=== PATIENT | female | born 1940 | race Caucasian/White ===

== ENCOUNTER → 2016-10-30 | Outpatient (CLI) | payer BC | LOC: BMCIMAGING 09:44 | PROVIDERS: ATTEND Internal Medicine Hematology & Oncology | DX: M81.0 Age-related osteoporosis without current pathological fracture (principal) ==

== ENCOUNTER → 2016-10-31 | Outpatient (CLI) | payer BC | LOC: FIMAGING 13:33 | PROVIDERS: ATTEND Internal Medicine Hematology & Oncology | DX: C90.00 Multiple myeloma not having achieved remission (principal); R93.8 Abnormal findings on diagnostic imaging of other specified body structures; R91.8 Other nonspecific abnormal finding of lung field; Z85.3 Personal history of malignant neoplasm of breast ==

== ENCOUNTER → 2016-11-21 | Outpatient (CLI) | payer BC | LOC: FIMAGING 10:03 | DX: Z12.31 Encounter for screening mammogram for malignant neoplasm of breast (principal); Z85.3 Personal history of malignant neoplasm of breast; Z80.3 Family history of malignant neoplasm of breast | CPT/HCPCS: G0202 ==

== ENCOUNTER → 2016-12-10 | Outpatient (CLI) | payer BC | LOC: FIMAGING 11:49 | PROVIDERS: ATTEND Internal Medicine Hematology & Oncology | DX: R91.1 Solitary pulmonary nodule (principal); J47.9 Bronchiectasis, uncomplicated; I25.83 Coronary atherosclerosis due to lipid rich plaque; I77.819 Aortic ectasia, unspecified site ==

== ENCOUNTER → 2017-06-04 | Outpatient (CLI) | payer BC | LOC: FIMAGING 10:17 | PROVIDERS: ATTEND Internal Medicine Critical Care Medicine | DX: J47.9 Bronchiectasis, uncomplicated (principal); J98.4 Other disorders of lung ==

== ENCOUNTER → 2017-11-24 | Outpatient (CLI) | payer BC | LOC: FIMAGING 09:33 | PROVIDERS: ATTEND Internal Medicine Hematology & Oncology | DX: Z12.31 Encounter for screening mammogram for malignant neoplasm of breast (principal); Z85.3 Personal history of malignant neoplasm of breast ==

== ENCOUNTER → 2017-12-24 | Outpatient (CLI) | payer BC | LOC: BMCIMAGING 09:53 | PROVIDERS: ATTEND Internal Medicine Hematology & Oncology | DX: Z13.820 Encounter for screening for osteoporosis (principal); M81.0 Age-related osteoporosis without current pathological fracture; C90.00 Multiple myeloma not having achieved remission; Z78.0 Asymptomatic menopausal state ==

== ENCOUNTER → 2017-12-25 | Outpatient (CLI) | payer BC | LOC: FIMAGING 12:03 | PROVIDERS: ATTEND Internal Medicine Hematology & Oncology | DX: C90.00 Multiple myeloma not having achieved remission (principal) ==

== ENCOUNTER → 2018-01-30 | Outpatient (CLI) | payer BC | LOC: BMCIMAGING 13:21 | DX: I65.21 Occlusion and stenosis of right carotid artery (principal) ==

== ENCOUNTER → 2018-03-17 | Outpatient (CLI) | payer BC | LOC: BMCIMAGING 10:21 | PROVIDERS: ATTEND Orthopaedic Surgery | DX: M19.011 Primary osteoarthritis, right shoulder (principal) ==

== ENCOUNTER → 2018-03-20 | Outpatient (CLI) | payer BC | LOC: FIMAGING 19:26 | PROVIDERS: ATTEND Orthopaedic Surgery | DX: Z01.818 Encounter for other preprocedural examination (principal); M19.011 Primary osteoarthritis, right shoulder ==

== ENCOUNTER 2018-04-23 14:41 | Emergency (ER) | payer BC ==
--- NOTE | 2018-04-23 15:10 | EDPHY ---
H & P Stated Complaint: Mecahnical fall, landed on R hip. Unable to bare weight Time Seen by Provider: 04/23/18 15:09 HPI/ROS: CHIEF COMPLAINT: Right hip pain HISTORY OF PRESENT ILLNESS: The patient presents to the ED with complaints of right hip and groin pain after she tripped and fell at home landing on her right hip. The patient does have a prior history of a right hip prostheses. The patient did not strike her head or lose consciousness. She has no complaints of headache, neck pain, chest pain, back pain, difficulty breathing or additional extremity complaints. She denies any antecedent chest pain or palpitations prior to her fall. She currently has no acute neurologic complaints. The patient is not anticoagulated. REVIEW OF SYSTEMS: A comprehensive 10 point review of systems is otherwise negative aside from elements mentioned in the history of present illness. Source: Patient Exam Limitations: No limitations - Personal History Current Tetanus/Diphtheria Vaccine: Yes Current Tetanus Diphtheria and Acellular Pertussis (TDAP): Yes Tetanus Vaccine Date: < 10 YEARS - Medical/Surgical History Hx Asthma: No Hx Chronic Respiratory Disease: No Hx Diabetes: No Hx Cardiac Disease: No Hx Renal Disease: No Hx Cirrhosis: No Hx Alcoholism: No Hx HIV/AIDS: No Hx Splenectomy or Spleen Trauma: No Other PMH: MYELOMA,HTN, HYPERCHOLESTEROL, BREAST CANCER, ASFCENDING AORTIC ANEURYSM, heart valve regurgitation - Social History Smoking Status: Never smoked - Physical Exam Exam: General Appearance: Alert, no distress Head: Normocephalic atraumatic Neck: No midline tenderness Eyes: Pupils equal and round no pallor or injection ENT, Mouth: Mucous membranes moist Respiratory: There are no retractions, lungs are clear to auscultation Cardiovascular: Regular rate and rhythm Gastrointestinal: Abdomen is soft and nontender, no masses, bowel sounds normal Neurological: A&O, normal motor function, normal sensory exam, normal cranial nerves Skin: Warm and dry, no rashes Musculoskeletal: Neck is supple nontender Extremities: I am able to range the right hip. Patient does have pain in her right groin with passive and active range of motion Psychiatric: Patient is oriented X 3, there is no agitation Constitutional: Initial Vital Signs Temperature (C) 36.6 C 04/23/18 14:55 Heart Rate 70 04/23/18 14:55 Respiratory Rate 16 04/23/18 14:55 Blood Pressure 157/79 H 04/23/18 14:55 O2 Sat (%) 96 04/23/18 14:55 O2 Delivery Mode Room Air Allergies/Adverse Reactions: PAIN MEDS Allergy (Uncoded 03/03/11 10:56) Vomiting Home Medications: Medication Instructions Recorded Aspirin [Aspirin 81mg (*)] 81 mg PO BID 11/27/14 Atorvastatin Calcium [Lipitor 10 10 mg PO DAILY 11/27/14 mg (*)] Losartan Potassium [Cozaar 50 mg 50 mg PO DAILY 11/27/14 (*)] Metoprolol Succinate Xr [Toprol Xl 100 mg PO DAILY 11/27/14 100 mg (*)] Acetaminophen with Codeine 1 each PO Q4 PRN #20 tab 04/23/18 [Tylenol #3] Medical Decision Making - Diagnostics Imaging Results: Imaging Impressions Hip X-Ray 04/23/18 15:09 Impression: Prior right hip arthroplasty, stable in radiographic appearance, without acute fracture identified. Decreased bone density surrounding the acetabular component of the prosthesis is again noted similar to previous study. Addendum: The patient does have inferior and superior right ramus fractures. These are nondisplaced. ED Course/Re-evaluation: The patient presents the ED with complaints of isolated right hip and groin pain after mechanical fall. Patient did have a plain film x-ray which demonstrates no evidence of a dislocation or periprosthetic fracture. I wonder if the patient does have a nondisplaced inferior ramus fracture. The patient was noted to be neurovascularly intact. Ambulation with a walker was attempted in the emergency department. I did review the x-ray with the radiologist after his read. There is evidence of a inferior and superior right ramus fracture. The patient is able to ambulate with a walker. She is requesting Tylenol 3 which has been ineffective pain medication for her in the past. She has been instructed not to take more than 4 g of Tylenol a day. Differential Diagnosis: Differential diagnosis considered includes hip fracture, pelvic fracture, hip dislocation, ramus fracture Departure - Departure Disposition: Home, Routine, Self-Care Clinical Impression: Pubic ramus fracture Qualifiers: Encounter type: initial encounter Fracture type: closed Laterality: right Qualified Code(s): S32.591A - Other specified fracture of right pubis, initial encounter for closed fracture Condition: Good Instructions: Pelvic Fracture (ED) Additional Instructions: 1. Use walker for ambulation. 2. Tylenol No. 3 as needed for pain. Do not take more than 4 g of Tylenol a day. 3. Please follow up with the orthopedic surgeon you have been referred to for a follow-up visit in the next 1-2 weeks. 4. Return to the ED for uncontrolled pain or other concerns. Referrals: Harley Mast MD [Medical Doctor] - As per Instructions Prescriptions: Acetaminophen with Codeine [Tylenol #3] 1 each PO Q4 PRN #20 tab PRN Reason: for pain
[2018-04-23 16:31] VITALS: BP 144/89
--- NOTE | 2018-04-23 16:38 | ASMTCMCOM ---
CM Note CM Note Notes: Requested to assist patient with obtaining a walker. Pt provided [employer] list but because it is late in the day and she wouldn't be able to make it to the [facility] to borrow one for tonight, this CM was able to locate one from the CM supply. Pt and her state they plan on following up with Dr Zarco and pt's PCP Dr Edwige Cook. CM available for further assistance if needed. Date Signed: 04/23/2018 04:33 PM Electronically Signed By:Jess Nina RN
== END 2018-04-23 16:30 | disposition home or self-care (01) ==
DX: S32.591A Other specified fracture of right pubis, initial encounter for closed fracture (principal); S32.511A Fracture of superior rim of right pubis, initial encounter for closed fracture; W01.0XXA Fall on same level from slipping, tripping and stumbling without subsequent striking against object, initial encounter; Y92.019 Unspecified place in single-family (private) house as the place of occurrence of the external cause; I10 Essential (primary) hypertension; E78.00 Pure hypercholesterolemia, unspecified

== ENCOUNTER 2018-04-24 11:27 | Inpatient (IN) | payer OTHER, BC ==
--- NOTE | 2018-04-24 12:17 | EDPHY ---
H & P Stated Complaint: Returns for uncontrolled R hip pain, syncopal episodes, vomit , R ramus fx - Personal History Tetanus Vaccine Date: < 10 YEARS - Medical/Surgical History Hx Asthma: No Hx Chronic Respiratory Disease: No Hx Diabetes: No Hx Cardiac Disease: No Hx Renal Disease: No Hx Cirrhosis: No Hx Alcoholism: No Hx HIV/AIDS: No Hx Splenectomy or Spleen Trauma: No Other PMH: MYELOMA,HTN, HYPERCHOLESTEROL, BREAST CANCER, ASFCENDING AORTIC ANEURYSM, heart valve regurgitation, R ramus fx 04/23 - Social History Smoking Status: Never smoked Time Seen by Provider: 04/24/18 11:47 HPI/ROS: CHIEF COMPLAINT: Continued right hip pain HISTORY OF PRESENT ILLNESS: 77-year-old female arrives via private vehicle. She was seen the ER yesterday after mechanical fall onto her right hip with negative x-rays at that time. She is discharged home with Tylenol No. 3 noting that anything stronger causes intractable nausea and vomiting. She returns to the ER noting intractable pain, inability to ambulate. The family also relates multiple, recurrent episodes of syncope which are new as well as 2 episodes of coffee-ground appearing emesis this morning. No abdominal pain. No head injury. No melena hematochezia. No hematuria. No chest pain. No dyspnea. No back pain. No neck pain. REVIEW OF SYSTEMS: 10 systems reviewed and negative with the exception of the elements mentioned in the history of present illness PAST MEDICAL & SURGICAL HISTORY: Multiple myeloma. Hypertension. Hypercholesterolemia. Breast cancer. Ascending aortic aneurysm. SOCIAL HISTORY: nonsmoker PHYSICAL EXAM (Prior to examination, patient consented to physical exam, hands were washed and my usual and customary physical exam procedures followed) 1) GENERAL: Well-developed, well-nourished, alert and oriented. Appears to be in no acute distress. 2) HEAD: Normocephalic, atraumatic. No hematoma no depression no abrasion 3) HEENT: Pupils equal, round, reactive to light bilaterally. Sclera anicteric. Nasopharynx, oropharynx, clear, no lesions. Moist Mucous membranes. 4) NECK: Full range of motion, no meningeal signs. 5) LUNGS: Clear auscultation bilaterally, no wheezes, no rhonchi, no retractions. 6) HEART: Regular rate and rhythm, no murmur, no heave, no gallop. 7) ABDOMEN: No guarding, no rebound, no focal tenderness, negative McBurney's, negative Fong's, negative Rovsing's, negative peritoneal sign, 8) MUSCULOSKELETAL: There is no leg length discrepancy. She has brisk pulses bilaterally with soft compartments. She has significant pain with range of motion of the right lower extremity on the hip. Otherwise, Moving all extremities, no focal areas of tenderness, no obvious trauma. No peripheral edema or discoloration. 9) BACK: No CVA tenderness, no midline vertebral tenderness, no fluctuance, no step-off, no obvious trauma, no visual or palpable abnormality. 10) SKIN: No rash, no petechiae. 11) Psychiatric: Patient is oriented X 3, there is no agitation. DIFFERENTIAL DIAGNOSIS: In no particular order including but not limited to fracture, sprain, strain, dislocation, arrhythmia, AR (Vamsi,Aron Lorraine) Constitutional: Initial Vital Signs Temperature (C) 37.0 C 04/24/18 11:29 Heart Rate 76 04/24/18 11:29 Respiratory Rate 16 04/24/18 11:29 Blood Pressure 147/82 H 04/24/18 11:29 O2 Sat (%) 97 04/24/18 11:29 O2 Delivery Mode Room Air Allergies/Adverse Reactions: midazolam [From Versed] Allergy (Severe, Verified 04/24/18 12:49) Vomiting PAIN MEDS Allergy (Severe, Uncoded 04/24/18 12:49) Vomiting Home Medications: Medication Instructions Recorded Aspirin [Aspirin 81mg (*)] 81 mg PO BID 11/27/14 Atorvastatin Calcium [Lipitor 10 10 mg PO DAILY 11/27/14 mg (*)] Losartan Potassium [Cozaar 50 mg 50 mg PO DAILY 11/27/14 (*)] Acetaminophen/Codeine 300/30Mg 1 each PO Q4 PRN 04/24/18 [Tylenol #3 (*)] Areds 2 2 tab PO DAILY 04/24/18 Carboxymethyl/Glycerin/Poly80 1 drop OP Q2 PRN 04/24/18 [Refresh Optive Advanced Drops] Cholecalciferol Vit D3 [Vitamin D3 1,000 units PO DAILY 04/24/18 (*)] Diclofenac Sodium 1% [Voltaren Gel 1 rosales TP DAILY 04/24/18 (*)] Herbals/Supplements -Info Only 1 ea PO DAILY 04/24/18 Metoprolol Tartrate [Lopressor 25 25 mg PO BID 04/24/18 mg (*)] Medical Decision Making - Diagnostics Imaging Results: Imaging Impressions Chest X-Ray 04/24/18 12:14 Impression: 1. Suspect moderate left pneumothorax. 2. Possible mass versus parenchymal scarring right mid lung lateral to the hilum. Recommend CT examination of the chest for further characterization. 3. Advanced bilateral glenohumeral osteoarthritis.. Results called to Giuseppe Agustin PA-C, at 12:[address] 04/24/18 12:18 Impression: 1. Minimally displaced inferior pubic ramus fracture on the right. 2. Prior right hip arthroplasty without complication. Results called to Giuseppe Agustin PA-C, at 2:[address] 04/24/18 12:50 Impression: 1. Multifocal areas of pleural/parenchymal scarring within both lungs, without suspicious lung nodule identified. 2. No pneumothorax. 3. Mild dilatation of the ascending thoracic aorta at 4.4 cm. 4. Extensive aortic and coronary atherosclerotic vascular calcifications. Results called to Giuseppe Agustin PA-C, at 2:30 PM. Imaging Impressions Chest X-Ray 04/24/18 12:14 Impression: 1. Suspect moderate left pneumothorax. 2. Possible mass versus parenchymal scarring right mid lung lateral to the hilum. Recommend CT examination of the chest for further characterization. 3. Advanced bilateral glenohumeral osteoarthritis.. Results called to Giuseppe Agustin PA-C, at 12:[address] 04/24/18 12:18 Impression: 1. Minimally displaced inferior pubic ramus fracture on the right. 2. Prior right hip arthroplasty without complication. Results called to Giuseppe Agustin PA-C, at 2:[address] 04/24/18 12:50 Impression: 1. Multifocal areas of pleural/parenchymal scarring within both lungs, without suspicious lung nodule identified. 2. No pneumothorax. 3. Mild dilatation of the ascending thoracic aorta at 4.4 cm. 4. Extensive aortic and coronary atherosclerotic vascular calcifications. Results called to Giuseppe Agustin PA-C, at 2:30 PM. Images reviewed by myself (Aron Agustin) ED Course/Re-evaluation: The patient was evaluated and managed by the physician's interior design assistant. My cosignature indicates that I reviewed the chart and I agree with the findings and plan of care as documented. I am the secondary supervising physician. ( Jacqueline Gr) Old medical records reviewed by myself of after evaluating the patient. Concerned this patient is her inability to control pain at home, inability to ambulate, transfer safely at home. Shortly after evaluating the patient we discussed admission which the patient family think is appropriate given her current pain control. Family also notes multiple, recurrent episodes of syncope since leaving the [facility]. The patient denies head injury and there is no evidence of head injury. Will obtain further diagnostic studies and re- evaluate. 12:50 p.m.: Phone call from staff radiologist Dr. Baugh concerned about possible left-sided pneumothorax. Will obtain further diagnostic studies. 12:56 p.m.: Discussed the imaging findings , I recommended CT of the chest. Patient expresses concern given history of multiple myeloma and requested I speak with her oncologist Dr. Gill before consenting to CT of the chest. 1:20 p.m.: I consulted with Dr. Jeannie King, on-call for Dr. Gill discuss IV contrast. She prefers if imaging studies can be performed without IV contrast. Agrees that the benefits of CT imaging outweigh the risks for possible pneumothorax. 1:23 p.m.: Discussed my conversation with Dr. Jeannie King, recommended CT, patient consents. 2:41 p.m.: Consultation with Dr. Catalina Perales hospitalist to admit patient for recurrent syncope, intractable hip and pelvic pain, inability care for self (Aron Agustin) - Data Points Laboratory Results: Laboratory Results 04/24/18 12:10 04/24/18 12:10 04/24/18 04/24/18 04/24/18 13:29 13:27 12:10 WBC RBC Hgb Hct MCV MCH MCHC RDW Plt Count MPV Neut % (Auto) Lymph % (Auto) [place] % (Auto) Eos % (Auto) Baso % (Auto) Nucleat RBC Rel Count Absolute Neuts (auto) Absolute Lymphs (auto) Absolute Monos (auto) Absolute Eos (auto) Absolute Basos (auto) Absolute Nucleated RBC Immature Gran % Immature Gran # PT INR APTT Sodium 129 mEq/L L mEq/L (135-145) Potassium 4.2 mEq/L mEq/L (3.3-5.0) Chloride 96 mEq/L L mEq/L (97-110) Carbon Dioxide 24 mEq/l mEq/l (22-31) Anion Gap 9 mEq/L mEq/L (8-16) BUN 26 mg/dL H mg/dL (7-23) Creatinine 0.9 mg/dL mg/dL (0.6-1.0) Estimated GFR > 60 Glucose 119 mg/dL H mg/dL (70-100) Calcium 9.3 mg/dL mg/dL (8.5-10.4) POC Troponin I 0.02 ng/mL ng/mL (0.00-0.08) Stool Occult Bld Scrn NEGATIVE (NEGATIVE) 04/24/18 04/24/18 12:10 12:10 WBC 6.86 10^3/uL 10^3/uL (3.80-9.50) RBC 2.89 10^6/uL L 10^6/uL (4.18-5.33) Hgb 9.8 g/dL L g/dL (12.6-16.3) Hct 28.5 % L % (38.0-47.0) MCV 98.6 fL fL (81.5-99.8) MCH 33.9 pg pg (27.9-34.1) MCHC 34.4 g/dL g/dL (32.4-36.7) RDW 12.7 % % (11.5-15.2) Plt Count 172 10^3/uL 10^3/uL (150-400) MPV 8.4 fL L fL (8.7-11.7) Neut % (Auto) 69.4 % % (39.3-74.2) Lymph % (Auto) 13.7 % L % (15.0-45.0) [place] % (Auto) 16.5 % H % (4.5-13.0) Eos % (Auto) 0.0 % L % (0.6-7.6) Baso % (Auto) 0.1 % L % (0.3-1.7) Nucleat RBC Rel Count 0.0 % % (0.0-0.2) Absolute Neuts (auto) 4.76 10^3/uL 10^3/uL (1.70-6.50) Absolute Lymphs (auto) 0.94 10^3/uL L 10^3/uL (1.00-3.00) Absolute Monos (auto) 1.13 10^3/uL H 10^3/uL (0.30-0.80) Absolute Eos (auto) 0.00 10^3/uL L 10^3/uL (0.03-0.40) Absolute Basos (auto) 0.01 10^3/uL L 10^3/uL (0.02-0.10) Absolute Nucleated RBC 0.00 10^3/uL 10^3/uL (0-0.01) Immature Gran % 0.3 % % (0.0-1.1) Immature Gran # 0.02 10^3/uL 10^3/uL (0.00-0.10) PT 14.2 SEC SEC (12.0-15.0) INR 1.08 (0.83-1.16) APTT 27.0 SEC SEC (23.0-38.0) Sodium Potassium Chloride Carbon Dioxide Anion Gap BUN Creatinine Estimated GFR Glucose Calcium POC Troponin I Stool Occult Bld Scrn Point of Care Test Results: Chemistry 04/24/18 13:27 POC Troponin I 0.02 ng/mL ng/mL (0.00-0.08) Departure - Departure Disposition: [facility] In[facility] Acute Clinical Impression: Intractable pain Syncope Qualifiers: Syncope type: unspecified Qualified Code(s): R55 - Syncope and collapse Inferior pubic ramus fracture Qualifiers: Encounter type: initial encounter Fracture type: closed Laterality: right Qualified Code(s): S32.591A - Other specified fracture of right pubis, initial encounter for closed fracture Condition: Fair
[2018-04-24 12:28] LABS: PLATELET COUNT 172 10^3/uL (150-400)
[2018-04-24 12:42] LABS: INR 1.08 (0.83-1.16); PROTIME(PATIENT) 14.2 SEC (12.0-15.0)
[2018-04-24] MEDS ORDERED: IOPAMIDOL (ISOVUE 370) 100 ML BTL IV ONE (12:55)
[2018-04-24] MEDS ORDERED: PANTOPRAZOLE SODIUM 40 MG VIAL IVP ONE (14:02)
[2018-04-24] MEDS ORDERED: NS 1,000 ML IV ONE (14:19)
[2018-04-24] MEDS ORDERED: ONDANSETRON 4 MG/2 ML VIAL IVP ONE (15:20)
[2018-04-24] MEDS ORDERED: oxyCODONE IR 5 MG TAB PO PRN (16:41)
[2018-04-24] MEDS ORDERED: ACETAMINOPHEN/CODEINE 300/30MG TAB PO PRN (16:42)
--- NOTE | 2018-04-24 17:11 | ASMTCMCOM ---
CM Note CM Note Notes: Pt presented to the ED through triage for ongoing hip pain and inability to ambulate related to a fall she had yesterday. Pt was seen in the ED yesterday; xrays showed a minimally displaced pubic ramus fracture on the right. Pt was discharged home w/ a walker provided by CM. Pt lives with her , Leonel, who is at bedside. Pt is also reporting syncopal episodes and vomiting today. Pt admtd for recurrent syncope, inability to ambulate and care for herself due to intractable hip and pelvic pain related to pubic ramus fracture, and possible left-sided pneumothorax. Pt has a history of multiple myeloma and is followed by Dr Gill at [facility]. Pt is scheduled to have shoulder surgery with Dr Zarco on 05/18/18. Exact DC needs TBD; PT/OT evals ordered. Anticipate pt to DC home w/HC vs. SNF. CM to follow. Date Signed: 04/24/2018 05:10 PM Electronically Signed By:Jess Nina RN
--- NOTE | 2018-04-24 17:50 | GHP ---
DATE OF ADMISSION: 04/24/2018 CHIEF COMPLAINT: Pelvic pain. HISTORY: This is a 77-year-old female, who fell yesterday when her foot tangled in her bed comforter . She fell onto her right hip. She was seen in the emergency room yesterday and her x-ray was negat harinder. So she was sent home with Tylenol No. 3. Since returning home, she has done poorly. She has i ntractable pain in her pelvis. She is unable to ambulate. She has passed out 5 times. Every time julissa freitas tries to get up and walk she gets severe pain. She vomits, she breaks out in a cold sweat and then passes out. She had a lot of vomiting last night which was non bloody. Although the vomiting later turned into coffee-ground emesis. She is taking Tylenol with codeine because that is the only narco tic she has tolerated in the past. She has developed urinary retention because she can't sit upright on the toilet. Pain is 10/10 with any attempts to walk. PAST MEDICAL HISTORY: 1. Multiple myeloma, in remission. 2. Hypertension. 3. Ascending aortic aneurysm. 4. Breast cancer status post lumpectomy and radiation in 2006 without recurrence. 5. Syndrome of inappropriate antidiuretic hormone. MEDICATIONS: Please see computer record for full detailed list. ALLERGIES: Midazolam. SOCIAL HISTORY: No smoking. No alcohol. She lives with her in a private home. REVIEW OF SYSTEMS: Complete review of systems obtained. Review of systems negative on constitutiona l, HEENT, GI, pulmonary, cardiovascular, , hematology, skin, muscle, endocrine, psych, except for p ositives and negatives as in HPI. FAMILY HISTORY: Reviewed, noncontributory to presenting complaint. PHYSICAL EXAMINATION: GENERAL: Well-developed, well-nourished female, in no acute distress. VITAL SIGNS: Temperature 37, pulse 76, blood pressure 147/82, saturating 97% on room air. EYES: Normal con junctivae, pupils react to light. ENT normal ears, nose. Hearing intact. Normal teeth. Oropharynx moist. NECK: Trachea midline. No thyromegaly. CHEST: Normal effort. LUNGS: Clear to auscultation bilaterally. CARDIOVASCULAR: Regular rhythm. No murmur. No lower extremity edema. ABDOMEN: Soft, nontender. No hepatosplenomegaly. SKIN: Warm, dry, intact without rash. MUSCULOSKELETAL: No cyan osis or clubbing. Strength 5/5 upper and lower extremities. NEUROLOGIC: Cranial nerves intact, nor mal sensation to light touch. PSYCH: Alert and oriented x3. Normal affect. Normal judgment. Norm al memory. LABORATORY DATA: White count 6.86, hematocrit 28.5, platelets 172, sodium 129, potassium 4.2, chlori de 196, bicarb 24, BUN 26, creatinine 0.9, glucose 119, troponins negative. Heme-negative from below . INR is 1.08. EKG reviewed by me. My personal interpretation is normal sinus rhythm. No ST or T- wave changes. CT scan of the chest shows a 4 x 4 cm thoracic aortic aneurysm. Coronary artery disea se. No pneumonia. CT scan of the pelvis shows a right inferior pubic ramus fracture. ASSESSMENT/PLAN: 1. Right inferior pubic ramus fracture. She will be weightbearing as tolerated. Will consult PT OT and currently using IV morphine for pain control which will need to be transitioned to an oral regim en as she can tolerate. 2. Recurrent syncope. I suspect this is vagal due to nausea, vomiting, pain and hypovolemia. Will w atch her on telemetry. Could consider echocardiogram but I think this would be low yield. 3. Coffee-ground emesis. I suspect a Zahida-Ray tear secondary to her profuse vomiting. Her ini tial vomiting was nonbloody. Will treat empirically with a proton pump inhibitor. Would consider an EGD only if the bleeding continues. 4. Acute blood loss anemia. Will follow up post hydration for transfusion needs. 5. Hyponatremia. She has a history of syndrome of inappropriate antidiuretic hormone. Will follow s odium closely throughout this hospitalization. 6. Urinary retention. This is due to her inability to sit on the toilet due to severe pain. Will s traight cath her once now and then follow bladder scans to assess for further need of catheterization . 7. Multiple myeloma in remission. CODE STATUS: Full. ADMISSION STATUS: 1. Will admit to inpatient as she is severely debilitated and in pain. Anticipate greater than 2 mi dnights required for stabilization. 2. DVT prophylaxis. This can be instituted if she has no further evidence of bleeding. She is high risk. /[id number]/MODL
[2018-04-24] MEDS: NS 1,000 ML IV SCH (18:05)
--- NOTE | 2018-04-24 19:47 | CPEKG ---
Test Reason : OPEN Blood Pressure : / mmHG Vent. Rate : 063 BPM Atrial Rate : 064 BPM P-R Int : 174 ms QRS Dur : 100 ms QT Int : 443 ms P-R-T Axes : 072 021 066 degrees QTc Int : 454 ms Sinus rhythm Abnormal R-wave progression, early transition Confirmed by Carlos A Singleton ([id number]) on 04/24/2018 7:46:34 PM Referred By: Confirmed By:Carlos A Singleton
[2018-04-24] MEDS: ONDANSETRON 4 MG/2 ML VIAL IVP PRN (19:50)
[2018-04-24] MEDS: METOPROLOL TARTRATE 25 MG TAB PO SCH (21:48)
[2018-04-25] MEDS: NS 1,000 ML IV SCH ×3 (03:43→23:39)
[2018-04-25] MEDS: ONDANSETRON 4 MG/2 ML VIAL IVP PRN ×2 (03:48→10:12)
[2018-04-25 04:29] LABS: PLATELET COUNT 141 10^3/uL (150-400)
--- NOTE | 2018-04-25 06:48 | PDMN ---
Medical Necessity Medical necessity: Pt meets inpt criteria per MD order and Musculoskelteal Disease GRG. 77 y/o w/recent fall admitted w/intractable pelvic pain, unable to ambulate, recurrent syncope, nausea/vomiting, coffee ground emesis-suspect Zahida-Ray tare, possible EGD, hyponatremia w/sodium 129, acute blood loss anemia (H&H 9.8, 25.5 yesterday, 8.4, 24.4 today) , and urinary retention. IVF, IV PPI, IV morphine for pain, IV antiemetics, PT/OT evals pending, PCU monitoring. Anticipate>2MN for further eval/ management of multiple medical conditions, pt severely debilitated.
[2018-04-25] MEDS ORDERED: PANTOPRAZOLE SODIUM 40 MG VIAL IVP SCH (09:00)
[2018-04-25] MEDS ORDERED: ENOXAPARIN 40 MG/0.4 ML SYR SC SCH (09:00)
[2018-04-25] MEDS: ATORVASTATIN CALCIUM 10 MG TAB PO SCH (09:21)
[2018-04-25] MEDS: LOSARTAN POTASSIUM 50 MG TAB PO SCH (09:21)
[2018-04-25] MEDS: METOPROLOL TARTRATE 25 MG TAB PO SCH ×2 (09:21→19:52)
[2018-04-25] MEDS: DICLOFENAC SODIUM 1% 100 GM GEL TP SCH (10:10)
[2018-04-25] MEDS: traMADol 50 MG TAB PO PRN ×2 (10:12→17:43)
--- NOTE | 2018-04-25 12:23 | HOSPPROG ---
Hospitalist Progress Note Assessment/Plan: 77-year-old admitted with a fall sustaining a pelvic fracture. She was unable to manage at home due to intractable pain and multiple episodes of vasovagal syncope due to the pain. # nondisplaced inferior pubic rami fracture, weight bear as tolerated * PT OT * Will need rehab # syncope, secondary to vasovagal episodes from pain. This is accompanied by nausea and vomiting. That has since resolved since admission. * Continue telemetry monitoring # hematemesis with acute blood loss anemia most likely etiologies Zahida- Ray tear. Since that has completely resolved will continue to monitor H&H * PPI * If she continues to drop her hemoglobin will consult GI otherwise will treat for presumed Zahida-Ray tear # urinary retention, patient unable to void due to severe pain will continue Long for 24 hr and trial of removal tomorrow after she has participated with physical therapy. # multiple myeloma with chronic anemia # hyponatremia secondary to SIADH, continue to monitor sodiums during her acute hospitalization # DVT prophylaxis, SCDs while in bed. If her H&H remains stable tomorrow will start her on low-molecular heparin Subjective: Patient new to me and chart reviewed continues to have severe pain in her pelvic area with any ambulation. She does have a shoulder replacement scheduled for later this month with Dr. Zarco. She would like to follow up with him for her pelvic fracture as well will order him to her admission on Friday. Objective: Vital Signs Temp Pulse Resp BP Pulse Ox 36.7 C 63 12 135/72 H 93 04/25/18 11:15 04/25/18 11:15 04/25/18 11:15 04/25/18 11:15 04/25/18 11:15 Laboratory Results 04/25/18 03:34 04/25/18 03:34 04/24/18 04/25/18 04/26/18 05:59 05:59 05:59 Intake Total 2650 Output Total 3150 Balance -500 PT 14.2 SEC (12.0-15.0) 04/24/18 12:10 INR 1.08 (0.83-1.16) 04/24/18 12:10 - Physical Exam Constitutional: uncomfortable Eyes: PERRL, anicteric sclera Ears, Nose, Mouth, Throat: moist mucous membranes Cardiovascular: regular rate and rhythym Respiratory: no respiratory distress, clear to auscultation Gastrointestinal: normoactive bowel sounds, soft, non-tender abdomen Genitourinary: long in urethra Skin: warm Neurologic: AAOx3 Psychiatric: interacting appropriately, not anxious, thought process linear ICD10 Worksheet Patient Problems: Problems Problem Status Onset Syncope Acute Inferior pubic ramus fracture Acute Intractable pain Acute
[2018-04-25] MEDS ORDERED: BISACODYL 10 MG SUPP PR PRN (12:42)
[2018-04-25] MEDS ORDERED: MAGNESIUM HYDROXIDE 30 ML UDCUP PO PRN (12:42)
[2018-04-25] MEDS ORDERED: LACTULOSE 20 GM/30 ML UDCUP PO PRN (12:42)
--- NOTE | 2018-04-25 13:16 | ASMTCMCOM ---
CM Note CM Note Notes: 04/25/2018 Case Management Note Discussed pt during rounds this morning. Daughter Marcelina [phone] and son in law Víctor were present. Pt admitted after episode of syncope s/p displaced pubic ramus fracture. Pt lives independently with Scott [phone]. Daughter Bobbi can be reached at [phone]. Discussed d/c needs. PT recommending SNF rehab. Faxed referrals to [facility] (first choice), [facility] (2nd choice) and [facility] (last choice). Waiting to hear on auth. [employer] is closed until Friday. Earliest d/c will be Friday. Case Management d/c poc: to SNF rehab pending acceptance and authorization. Case Management to follow. Date Signed: 04/25/2018 01:15 PM Electronically Signed By:Edwige Waller RN
[2018-04-25] MEDS: ONDANSETRON DISINTEGRATING 4 MG TAB PO PRN (17:42)
[2018-04-25] MEDS: SENNOSIDES/DOCUSATE SODIUM TAB PO SCH (19:51)
[2018-04-25] MEDS: ASPIRIN 81 MG CHEWABLE TAB PO SCH (19:52)
[2018-04-26] MEDS: traMADol 50 MG TAB PO PRN ×3 (06:50→19:15)
[2018-04-26] MEDS: ONDANSETRON DISINTEGRATING 4 MG TAB PO PRN ×3 (06:50→19:16)
[2018-04-26] MEDS ORDERED: ENOXAPARIN 40 MG/0.4 ML SYR SC SCH (09:00)
[2018-04-26] MEDS: METOPROLOL TARTRATE 25 MG TAB PO SCH ×2 (09:22→20:25)
[2018-04-26] MEDS: ATORVASTATIN CALCIUM 10 MG TAB PO SCH (09:22)
[2018-04-26] MEDS: SENNOSIDES/DOCUSATE SODIUM TAB PO SCH ×2 (09:22→20:25)
[2018-04-26] MEDS: LOSARTAN POTASSIUM 50 MG TAB PO SCH (09:22)
[2018-04-26] MEDS: ASPIRIN 81 MG CHEWABLE TAB PO SCH ×2 (09:22→20:25)
[2018-04-26] MEDS: PANTOPRAZOLE SODIUM 40 MG TAB PO SCH (09:22)
[2018-04-26] MEDS: DICLOFENAC SODIUM 1% 100 GM GEL TP SCH (09:26)
[2018-04-26] MEDS: NS 1,000 ML IV SCH (09:50)
--- NOTE | 2018-04-26 11:46 | HOSPPROG ---
Hospitalist Progress Note Assessment/Plan: 77-year-old admitted with a fall sustaining a pelvic fracture. She was unable to manage at home due to intractable pain and multiple episodes of vasovagal syncope due to the pain. # nondisplaced inferior pubic rami fracture, weight bear as tolerated * PT OT * Will need rehab # syncope, secondary to vasovagal episodes from pain. This is accompanied by nausea and vomiting. That has since resolved since admission. * Continue telemetry monitoring # hematemesis with acute blood loss anemia most likely etiologies Zahida- Ray tear. Since that has completely resolved will continue to monitor H&H * PPI * If she continues to drop her hemoglobin will consult GI otherwise will treat for presumed Zahida-Ray tear * Recheck in am off fluids. # urinary retention, patient unable to void due to severe pain will continue Long for 24 hr and trial of removal tomorrow after she has participated with physical therapy. * dc long today and follow # HTN: likely 2/2 pain and possible fluid overload (on IVF) * continue to monitor for now * dc IVF # multiple myeloma with chronic anemia. MM in remission. Can follow up with Dr. Gill as outpatient. # hyponatremia secondary to SIADH, continue to monitor sodiums during her acute hospitalization # DVT prophylaxis, SCDs while in bed. If her H&H remains stable tomorrow will start her on low-molecular heparin Subjective: still in quite a bit of pain. H/H just a bit lower but on IVF still. no BMs, no nausea Objective: Vital Signs Temp Pulse Resp BP Pulse Ox 36.4 C 75 18 161/82 H 94 04/26/18 07:56 04/26/18 07:56 04/26/18 07:56 04/26/18 07:56 04/26/18 07:56 Laboratory Results 04/26/18 03:34 04/26/18 03:34 04/25/18 04/26/18 04/27/18 05:59 05:59 05:59 Intake Total 2650 1910 300 Output Total 3150 1500 400 Balance -500 410 -100 PT 14.2 SEC (12.0-15.0) 04/24/18 12:10 INR 1.08 (0.83-1.16) 04/24/18 12:10 - Physical Exam Constitutional: uncomfortable Eyes: PERRL, anicteric sclera Ears, Nose, Mouth, Throat: moist mucous membranes Cardiovascular: regular rate and rhythym Respiratory: no respiratory distress, clear to auscultation Gastrointestinal: soft, non-tender abdomen Genitourinary: long in urethra Skin: No normal color (pale) Musculoskeletal: joint tenderness (pelvis), abnormal gait Neurologic: AAOx3 Psychiatric: interacting appropriately ICD10 Worksheet Patient Problems: Problems Problem Status Onset Syncope Acute Inferior pubic ramus fracture Acute Intractable pain Acute
[2018-04-26] MEDS: POLYETHYLENE GLYCOL 3350 17 GM PKT PO PRN (20:25)
[2018-04-27] MEDS: traMADol 50 MG TAB PO PRN ×3 (01:18→23:29)
[2018-04-27] MEDS: ACETAMINOPHEN 325 MG TAB PO PRN ×3 (01:19→23:28)
--- NOTE | 2018-04-27 08:43 | HOSPPROG ---
Hospitalist Progress Note Assessment/Plan: 77-year-old admitted with a fall sustaining a pelvic fracture. She was unable to manage at home due to intractable pain and multiple episodes of vasovagal syncope due to the pain. # nondisplaced inferior pubic rami fracture, weight bear as tolerated * PT OT * Will need rehab # syncope, secondary to vasovagal episodes from pain. This is accompanied by nausea and vomiting. That has since resolved since admission. * Continue telemetry monitoring # hematemesis with acute blood loss anemia most likely etiologies Zahida- Ray tear. No further N/V or hematemesis. No BM in 5 days but H/H continues to drop * Continue PPI * Hold asa, lovenox * discussed with GI, for ? scope, she did have recent Colonoscopy this summer by Dr. Byers. * che transfuse one unit since she is slightly hypotensive today and orthostatic. * give procrit # urinary retention, patient unable to void due to severe pain will continue Long for 24 hr and trial of removal tomorrow after she has participated with physical therapy. * dc long today and follow # HTN: likely 2/2 pain and possible fluid overload (on IVF) * continue to monitor for now * dc IVF # multiple myeloma with chronic anemia. MM in remission. Can follow up with Dr. Gill as outpatient. # hyponatremia secondary to SIADH, continue to monitor sodiums during her acute hospitalization # DVT prophylaxis, SCDs while in bed. If her H&H remains stable tomorrow will start her on low-molecular heparin Subjective: slightly lightheaded with standing, BP, slightly lower than before. Objective: Vital Signs Temp Pulse Resp BP Pulse Ox 36.5 C 74 12 97/53 L 98 04/27/18 07:35 04/27/18 07:35 04/27/18 07:35 04/27/18 07:35 04/27/18 07:35 Laboratory Results 04/27/18 03:50 04/26/18 03:34 04/26/18 04/27/18 04/28/18 05:59 05:59 05:59 Intake Total 1910 300 Output Total 1500 775 Balance 410 -475 PT 14.2 SEC (12.0-15.0) 04/24/18 12:10 INR 1.08 (0.83-1.16) 04/24/18 12:10 - Physical Exam Constitutional: no apparent distress Eyes: PERRL, anicteric sclera Ears, Nose, Mouth, Throat: moist mucous membranes Cardiovascular: regular rate and rhythym, No edema Respiratory: no respiratory distress Gastrointestinal: soft, non-tender abdomen Genitourinary: No long in urethra Skin: normal color Musculoskeletal: pain with ROM Neurologic: AAOx3 Psychiatric: interacting appropriately ICD10 Worksheet Patient Problems: Problems Problem Status Onset Syncope Acute Inferior pubic ramus fracture Acute Intractable pain Acute
[2018-04-27] MEDS ORDERED: EPOETIN ALFA 10,000 UNIT/ML VIAL SC ONE (09:00)
--- NOTE | 2018-04-27 09:26 | PDANEPAE ---
ANE History of Present Illness hematemsis ANE Past Medical History - Cardiovascular History Hx Hypertension: Yes Hx Arrhythmias: No Hx Chest Pain: No Hx Coronary Artery / Peripheral Vascular Disease: No Hx CHF / Valvular Disease: No Cardiovascular History Comment: asc aortic aneurysm - Pulmonary History Hx COPD: No Hx Asthma/Reactive Airway Disease: No Hx Recent Upper Respiratory Infection: No Hx Oxygen in Use at Home: No Hx Sleep Apnea: No Sleep Apnea Screening Result - Last Documented: Negative - Neurologic History Hx Cerebrovascular Accident: No Hx Seizures: No Hx Dementia: No - Endocrine History Hx Diabetes: No Hypothyroid: No Hyperthyroid: No Obesity: no Endocrine History Comment: siadh - Renal History Hx Renal Disorders: No - Liver History Hx Hepatic Disorders: No - Neurological & Psychiatric Hx Hx Neurological and Psychiatric Disorders: No - Chronic Pain History Chronic Pain: No ANE Review of Systems Review of Systems: ANE Patient History - Allergies Allergies/Adverse Reactions: midazolam [From Versed] Allergy (Severe, Verified 04/24/18 12:49) Vomiting PAIN MEDS Allergy (Severe, Uncoded 04/24/18 12:49) Vomiting - Home Medications Home medications: home medication list seen and reviewed Home Medications: Aspirin [Aspirin 81mg (*)] 81 mg PO BID 11/27/14 [Last Taken 04/24/18] Atorvastatin Calcium [Lipitor 10 mg (*)] 10 mg PO DAILY 11/27/14 [Last Taken ] Losartan Potassium [Cozaar 50 mg (*)] 50 mg PO DAILY 11/27/14 [Last Taken ] Acetaminophen/Codeine 300/30Mg [Tylenol #3 (*)] 1 each PO Q4 PRN 04/24/18 [Last Taken 04/24/18 06:00] Areds 2 2 tab PO DAILY 04/24/18 [Last Taken Unknown] Carboxymethyl/Glycerin/Poly80 [Refresh Optive Advanced Drops] 1 drop OP Q2 PRN 04/24/18 [Last Taken Unknown] Cholecalciferol Vit D3 [Vitamin D3 (*)] 1,000 units PO DAILY 04/24/18 [Last Taken Unknown] Diclofenac Sodium 1% [Voltaren Gel (*)] 1 rosales TP DAILY 04/24/18 [Last Taken ] Herbals/Supplements -Info Only 1 ea PO DAILY 04/24/18 [Last Taken Unknown] Metoprolol Tartrate [Lopressor 25 mg (*)] 25 mg PO BID 04/24/18 [Last Taken ] - NPO status NPO Status: no food or drink >8 hours NPO Since - Liquids (Date): 04/26/18 NPO Since - Solids (Date): 04/26/18 - Smoking Hx Smoking Status: Never smoked ANE Labs/Vital Signs - Labs Result Diagrams: 04/27/18 03:50 04/26/18 03:34 - Vital Signs Blood Pressure: 95/74 Heart Rate: 75 Respiratory Rate: 16 O2 Sat (%): 96 Height: 165.1 cm Weight: 54.431 kg ANE Physical Exam - Airway Mallampati Score: Class 2 Mouth exam: normal dental/mouth exam - Pulmonary Pulmonary: no respiratory distress - Cardiovascular Cardiovascular: regular rate and rhythym - ASA Status ASA Status: III ANE Anesthesia Plan Anesthesia Plan: GA with mask, MAC
[2018-04-27] MEDS ORDERED: LIDOCAINE 2% 2 ML INJ ONE ×2 (09:34)
[2018-04-27] MEDS ORDERED: PROPOFOL 200 MG/20 ML VIAL ONE (09:34)
[2018-04-27] MEDS ORDERED: ePHEDrine SULFATE 25 MG/5 ML SYR ONE (09:49)
--- NOTE | 2018-04-27 09:58 | POSTANESTH ---
Post Anesthetic Evaluation Cardiovascular Status: Normal, Stable Respiratory Status: Normal, Stable Level of Consciousness/Mental Status: Can Participate in Eval Pain Control: Adequate, Prn Tx Ordered Nausea/Vomiting Control: Adequate, Prn Tx Ordered Complications Possibly Related to Anesthesia: None Noted
[2018-04-27] MEDS ORDERED: fentaNYL 100 MCG/2 ML INJ IVP PRN (09:59)
[2018-04-27] MEDS ORDERED: NALOXONE HCL 0.4 MG/ML INJ IVP PRN (09:59)
[2018-04-27] MEDS ORDERED: ALBUTEROL 3 ML DEYVIAL IH PRN (09:59)
--- NOTE | 2018-04-27 09:59 | GIREPORT ---
[facility] Surgical Services - Endoscopy Department Patient Name: Lakshmi Hair Procedure Date: 04/27/2018 9:38 AM Patient Type: Inpatient Attending MD/ ER Physician: Manuel Jesus MD Procedure: Upper GI endoscopy Indications: Iron deficiency anemia, Hematemesis Patient Profile: 77 year old female presents for evaluation of hematemesis, post hemorrh agic anemia, and iron deficiency anemia. Providers: Manuel Jesus MD Medicines: Monitored Anesthesia Care Complications: No immediate complications. Estimated blood loss: Minimal. Description of Procedure: After obtaining informed consent, the endoscope was passed under direct vision. Throughout the procedure, the patient's blood pressure, pulse, and oxygen saturations were monitored continuously. The was introduced thro ugh the mouth, and advanced to the second part of duodenum. The upper GI endoscopy was accomplished without difficulty. The patient tolerated th e procedure well. Findings: The Z-line was irregular with esophagitis noted. Biopsies were taken wi th a cold forceps for histology. A large hiatal hernia was present. The examined duodenum was normal. Biopsies were taken with a cold force ps for histology. Estimated Blood Loss: Estimated blood loss was minimal. Post Op Diagnosis: - Z-line irregular/esophagitis. Biopsied. - Large hiatal hernia. - Normal examined duodenum. Biopsied. Recommendation: - Return patient to [facility] for [facility] care. - Advance diet as tolerated. - Continue present medications. - Use a proton pump inhibitor PO daily. - Await pathology results. - Thank you for allowing me to participate in the care of your patient. Attending Participation: I personally performed the entire procedure. Manuel Jesus MD Manuel Jesus MD 04/27/2018 9:58:33 AM This report has been signed electronicallyManuel Jesus MD Number of Addenda: 0 Note Initiated On: 04/27/2018 9:38 AM [email or web address]
--- NOTE | 2018-04-27 10:33 | GCON ---
DATE OF CONSULTATION: 04/27/2018 REFERRING PHYSICIAN: Xin Ovalle MD REASON FOR CONSULTATION: Hematemesis. CHIEF COMPLAINT: Hematemesis. HISTORY OF PRESENT ILLNESS: The patient is a 77-year-old female with history of multiple myeloma, chronic anemia, hypertension who [facility] with complaints of pain in her right hip as well as syncope. She had several episodes of vomiting, which were described as being coffee-grounds in nature. During hospital stay, her hemoglobin has dropped from 9.8 to 7.4. She did have a recent colonoscopy last year. She does take NSAIDs. I am being asked by Dr. Ovalle to evaluate the patient in consultation regarding her hematemesis. PAST MEDICAL HISTORY: 1. Multiple myeloma. 2. Hypertension. 3. Ascending aortic aneurysm. 4. Breast cancer. 5. SIADH. PAST SURGICAL HISTORY: Lumpectomy. ALLERGIES: Midazolam. MEDICATIONS: 1. Aspirin. 2. Atorvastatin. 3. Losartan. 4. Acetaminophen. 5. Eyedrops. 6. Vitamin D3. 7. Diclofenac. 8. Lopressor. SOCIAL HISTORY: No significant alcohol or tobacco use. FAMILY HISTORY: No history of esophageal or stomach cancer. REVIEW OF SYSTEMS: A 12 point comprehensive review of systems was asked. Pertinent positives and negatives per HPI. EXAM: VITAL SIGNS: Blood pressure 95/74, heart rate 74, respiration rate 16, temperature 36.6. GENERAL: Awake, alert, oriented x3 in no distress. HEENT: Anicteric sclerae. Moist mucosa. NECK: No JVD. CARDIOVASCULAR: Regular rate rhythm. Positive S1, S2. No murmurs or gallops appreciated. LUNGS: Clear to auscultation bilaterally. No wheezes, rales, or rhonchi. ABDOMEN: Soft, nontender, nondistended. Positive bowel sounds. No guarding. No rebound. EXTREMITIES: No clubbing, cyanosis, or edema. NEUROLOGIC: 2 through 12 grossly intact. PSYCH: Normal affect. SKIN: No jaundice. LABORATORY DATA: Blood work: WBC 10.7, hemoglobin 7.4, hematocrit 20.9, platelets 121. INR 1.08. Sodium 131, potassium 4.0, chloride 103, bicarb 24, BUN 9, creatinine 0.7. Iron 25, TIBC 260, iron saturation 10. ASSESSMENT/PLAN: 1. Hematemesis-with iron deficiency anemia. Has had chronic anemia and has been followed by Hematology. She does have significant NSAID use. At this time , I recommend to proceed with upper endoscopy to delineate the cause of the symptoms. The risks, benefits, and alternatives of the procedure were discussed in great detail with the patient. The risk of infection, bleeding, perforation, and sedation were discussed. All questions answered and informed consent was obtained. 2. Multiple myeloma. 3. Hypertension. 4. Aortic aneurysm. Thank you very much for this consultation. /[id number]/MODL MTDD
[2018-04-27] MEDS: LOSARTAN POTASSIUM 50 MG TAB PO SCH (11:53)
[2018-04-27] MEDS: SENNOSIDES/DOCUSATE SODIUM TAB PO SCH ×2 (11:54→20:59)
[2018-04-27] MEDS: PANTOPRAZOLE SODIUM 40 MG TAB PO SCH (11:54)
[2018-04-27] MEDS: METOPROLOL TARTRATE 25 MG TAB PO SCH ×2 (11:54→20:59)
[2018-04-27] MEDS: ATORVASTATIN CALCIUM 10 MG TAB PO SCH (11:54)
[2018-04-27] MEDS: DICLOFENAC SODIUM 1% 100 GM GEL TP SCH (11:57)
[2018-04-27] MEDS: ONDANSETRON DISINTEGRATING 4 MG TAB PO PRN ×2 (17:16→23:28)
[2018-04-28] MEDS: ONDANSETRON DISINTEGRATING 4 MG TAB PO PRN ×2 (07:44→22:04)
[2018-04-28] MEDS: PANTOPRAZOLE SODIUM 40 MG TAB PO SCH (08:35)
[2018-04-28] MEDS: SENNOSIDES/DOCUSATE SODIUM TAB PO SCH ×2 (08:36→20:40)
[2018-04-28] MEDS: ATORVASTATIN CALCIUM 10 MG TAB PO SCH (08:37)
[2018-04-28] MEDS: METOPROLOL TARTRATE 25 MG TAB PO SCH ×2 (08:38→20:38)
[2018-04-28] MEDS: traMADol 50 MG TAB PO PRN ×2 (08:39→22:05)
[2018-04-28] MEDS: LOSARTAN POTASSIUM 50 MG TAB PO SCH (08:40)
[2018-04-28] MEDS: POLYETHYLENE GLYCOL 3350 17 GM PKT PO PRN (15:00)
--- NOTE | 2018-04-28 15:32 | ASMTCMCOM ---
CM Note CM Note Notes: 04/28/2018 Case Management Note Discussed pt during rounds this morning. Faxed updates to [facility]. Anticipating d/c tomorrow. Case Management d/c poc: [facility]. Case Management to follow. Date Signed: 04/28/2018 03:31 PM Electronically Signed By:Edwige Waller RN
--- NOTE | 2018-04-28 16:13 | HOSPPROG ---
Hospitalist Progress Note Assessment/Plan: 77-year-old admitted with a fall sustaining a pelvic fracture. She was unable to manage at home due to intractable pain and multiple episodes of vasovagal syncope due to the pain. She is medically ready for discharge but waiting for her to have BM. She finally had BM at 1700 and it is now too late to transfer her to SNF. She has a be available and CM will plan on moving her over to skilled rehab in the morning. I will dictate a discharge summary today in anticipation for early dc tomorrow. # nondisplaced inferior pubic rami fracture, weight bear as tolerated * PT OT * Will need rehab * Awaiting BM for transfer * I left message with [employer] at office of Dr. Zarco, no one has seen her from the office. SHe will followu p with him * weight bear as tolerated # constipation. Patient without BM in the last 6 days. Staff working on bowel protocol. As soon as patient has good BM she can be transfered to rehab. # Rectocele, large. asymptomatic. Possibly causing some difficulty with BM, discussed with surgery, nothing to do at this time. OK to proceed with usual bowel protocol. Likely present for a long time and not symptomatic. Risk factors include age, female, vaginal deliveries. # syncope, secondary to vasovagal episodes from pain. This is accompanied by nausea and vomiting. That has since resolved since admission. * Continue telemetry monitoring # hematemesis with acute blood loss anemia most likely etiologies Zahida- Ray tear. No further N/V or hematemesis. * Continue PPI * resume lovenox with normal EGD * s/p EGD that was unremarkable * s/p 1 unit prbc for symptomatic anemia * # urinary retention, tried to remove long and pt unable to void with residuals of 450+ long replaced, can work on long removal at rehab. * # HTN: likely 2/2 pain and possible fluid overload (on IVF) * continue to monitor for now * dc IVF # multiple myeloma with chronic anemia. MM in remission. Can follow up with Dr. Gill as outpatient. # hyponatremia secondary to SIADH, continue to monitor sodiums during her acute hospitalization # DVT prophylaxis, SCDs while in bed. If her H&H remains stable tomorrow will start her on low-molecular heparin Subjective: no abdominal complaints, no bm in several days. no rectal discomfort. Objective: Vital Signs Temp Pulse Resp BP Pulse Ox 36.6 C 72 18 123/70 H 90 L 04/28/18 15:49 04/28/18 15:49 04/28/18 15:49 04/28/18 15:49 04/28/18 15:49 Laboratory Results 04/28/18 08:40 04/26/18 03:34 04/27/18 04/28/18 04/29/18 05:59 05:59 05:59 Intake Total 300 1435 Output Total 775 1885 Balance -475 -450 PT 14.2 SEC (12.0-15.0) 04/24/18 12:10 INR 1.08 (0.83-1.16) 04/24/18 12:10 - Physical Exam Constitutional: no apparent distress Eyes: PERRL Ears, Nose, Mouth, Throat: moist mucous membranes Cardiovascular: regular rate and rhythym Respiratory: no respiratory distress Gastrointestinal: soft, non-tender abdomen, No tenderness, No guarding, No distension Genitourinary: long in urethra Skin: warm Musculoskeletal: joint tenderness (pelvis) Neurologic: AAOx3 Psychiatric: interacting appropriately ICD10 Worksheet Patient Problems: Problems Problem Status Onset Syncope Acute Inferior pubic ramus fracture Acute Intractable pain Acute
--- NOTE | 2018-04-28 17:36 | GDS ---
DIAGNOSES: 1. Nondisplaced pubic ramus fracture. The patient can weightbear as tolerated. 2. Syncope secondary to vasovagal episodes from pain. Negative evaluation. 3. Hematemesis with acute blood-loss anemia, status post 1 unit of red blood cells, likely Zahida-W eiss tear. Negative EGD. 4. Urinary retention. Will need to continue Short and remove as patient becomes more mobile with vo iding trials. 5. Constipation. 6. Large rectocele noted. 7. Hypertension. 8. Multiple myeloma with chronic anemia, followed by Dr. Gill. 9. Hyponatremia secondary to syndrome of inappropriate antidiuretic hormone secretion. CONSULTATIONS: GI, Manuel Jesus MD PROCEDURES DONE: 1. Pelvic CT: Minimally displaced inferior pubic ramus fracture on the right. 2. Chest CT: Scarring of both lungs. Nothing acute. 3. Upper endoscopy: Showing no obvious cause for bleeding; hiatal hernia. HOSPITAL COURSE: The patient is a 77-year-old woman who presents with a fall. She sustained an infe rior pubic ramus fracture. She initially was seen in the ER and sent home. However, she was unable to tolerate the pain at home, had severe pain resulting in vasovagal episodes and syncope. She then developed some nausea from the pain and had severe nausea-vomiting followed by hematemesis. She even tually came back to the ER and was admitted for further evaluation and treatment. She was monitored and worked with Physical Therapy. Dr. Zarco is her orthopedic. I did alert him that she is here, a nd she will follow up with him as an outpatient. She was anemic and received 1 unit of packed red bl ood cells due to orthostasis and hypotension and tachycardia. She felt much better after the transfu george. Because of her anemia, she eventually did get an upper endoscopy; that revealed no obvious cau se of her bleeding. She is up to date on her colonoscopies, having had one a year ago. She also had severe constipation and did not have a bowel movement until the day prior to discharge, late in the afternoon-evening. She never complained of any significant abdominal symptoms. CONDITION ON DISCHARGE: Good. DISCHARGE MEDICATIONS: Please see discharge medication form. FOLLOWUP: She will be discharged to assisted for ongoing rehab and will follow up with Dr. Nancy sarah. [facility] /[id number]/MODL
[2018-04-28] MEDS: DICLOFENAC SODIUM 1% 100 GM GEL TP SCH (18:41)
[2018-04-28] MEDS: ACETAMINOPHEN 325 MG TAB PO PRN (22:04)
[2018-04-29] MEDS: ONDANSETRON DISINTEGRATING 4 MG TAB PO PRN (07:37)
[2018-04-29] MEDS: LOSARTAN POTASSIUM 50 MG TAB PO SCH (07:39)
[2018-04-29] MEDS: PANTOPRAZOLE SODIUM 40 MG TAB PO SCH (07:40)
[2018-04-29] MEDS: METOPROLOL TARTRATE 25 MG TAB PO SCH (07:40)
[2018-04-29] MEDS: traMADol 50 MG TAB PO PRN (07:40)
[2018-04-29] MEDS: ATORVASTATIN CALCIUM 10 MG TAB PO SCH (07:40)
[2018-04-29] MEDS: ACETAMINOPHEN 325 MG TAB PO PRN (07:41)
[2018-04-29] MEDS: DICLOFENAC SODIUM 1% 100 GM GEL TP SCH (07:46)
[2018-04-29] MEDS: SENNOSIDES/DOCUSATE SODIUM TAB PO SCH (11:07)
[2018-04-29 11:10] VITALS: BP 122/60
--- NOTE | 2018-04-29 14:45 | PDIAF ---
- Diagnosis Diagnosis: Pelvic fracture, Anemia, Zahida-Ray tear, Urinary retention, Constipatio Code Status: Full Code - Medication Management Discharge Medications: Medications to Continue on Transfer Aspirin [Aspirin 81mg (*)] 81 mg PO BID 11/27/14 [Last Taken 04/24/18] Atorvastatin Calcium [Lipitor 10 mg (*)] 10 mg PO DAILY 11/27/14 [Last Taken ] Losartan Potassium [Cozaar 50 mg (*)] 50 mg PO DAILY 11/27/14 [Last Taken ] Acetaminophen/Codeine 300/30Mg [Tylenol #3 (*)] 1 each PO Q4 PRN 04/24/18 [Last Taken 04/24/18 06:00] C/E/Zn/Cu/OM3/DHA/EPA/LUT/ZEAX [Preservision Areds 2 Softgel] 2 each PO DAILY [Last Taken Unknown] Carboxymethyl/Glycerin/Poly80 [Refresh Optive Advanced Drops] 1 drop OP Q2 PRN 04/24/18 [Last Taken Unknown] Cholecalciferol Vit D3 [Vitamin D3 (*)] 1,000 units PO DAILY 04/24/18 [Last Taken Unknown] Diclofenac Sodium 1% [Voltaren Gel (*)] 1 rosales TP DAILY 04/24/18 [Last Taken ] Herbals/Supplements -Info Only 1 ea PO DAILY 04/24/18 [Last Taken Unknown] Metoprolol Tartrate [Lopressor 25 mg (*)] 25 mg PO BID 04/24/18 [Last Taken ] Pantoprazole Sodium [Protonix 40mg (*)] 40 mg PO DAILY tab 04/29/18 [Last Taken Unknown] Polyethylene Glycol 3350 [Miralax 17 gm (*)] 17 gm PO DAILY PRN pkt 04/29/18 [ Last Taken Unknown] Sennosides/Docusate Sodium [Senokot-S] 1 - 2 tab PO BID tab 04/29/18 [Last Taken Unknown] traMADol [Ultram 50 mg (*)] 50 mg PO Q6HRS PRN tab 04/29/18 [Last Taken Unknown ] Alf Antibiotics: NA Discharge Medications: Refer to the Discharge Home Medication list for PRN reason. PICC Care - Routine: N/A - Orders Services needed: Registered Nurse, Certified Multimedia Engineer, Physical Therapy, Occupational Therapy Isolation Type: None Oxygen: NA Diet Recommendation: no restrictions on diet Weigh Patient: weekly Short: Yes (remove 7 days after discharge for trial void) Activity/Weight Bearing Restrictions: as tolerated w/ walker - Labs/Radiology BMP Date: 05/04/18 CBC w/diff Date: 05/04/18 Call or Fax Lab and Imaging Results to: Dr. Keon Gill - Follow Up Care Current Providers and Referrals: Lakeisha Mart MD [Primary Care Provider] - As per Instructions Manuel Jesus MD [Medical Doctor] - follow up in 2 weeks Jacques Zarco MD [Medical Doctor] - follow up in 2 weeks
--- NOTE | 2018-04-29 14:47 | PDIAF ---
- Diagnosis Diagnosis: Pelvic fracture, Anemia, Zahida-Ray tear, Urinary retention, Constipatio Code Status: Full Code - Medication Management Discharge Medications: Medications to Continue on Transfer Atorvastatin Calcium [Lipitor 10 mg (*)] 10 mg PO DAILY 11/27/14 [Last Taken ] Losartan Potassium [Cozaar 50 mg (*)] 50 mg PO DAILY 11/27/14 [Last Taken ] Acetaminophen/Codeine 300/30Mg [Tylenol #3 (*)] 1 each PO Q4 PRN 04/24/18 [Last Taken 04/24/18 06:00] C/E/Zn/Cu/OM3/DHA/EPA/LUT/ZEAX [Preservision Areds 2 Softgel] 2 each PO DAILY [Last Taken Unknown] Carboxymethyl/Glycerin/Poly80 [Refresh Optive Advanced Drops] 1 drop OP Q2 PRN 04/24/18 [Last Taken Unknown] Cholecalciferol Vit D3 [Vitamin D3 (*)] 1,000 units PO DAILY 04/24/18 [Last Taken Unknown] Diclofenac Sodium 1% [Voltaren Gel (*)] 1 rosales TP DAILY 04/24/18 [Last Taken ] Herbals/Supplements -Info Only 1 ea PO DAILY 04/24/18 [Last Taken Unknown] Metoprolol Tartrate [Lopressor 25 mg (*)] 25 mg PO BID 04/24/18 [Last Taken ] Bisacodyl [Bisacodyl (*)] 5 mg PO PRN PRN #30 tab 04/29/18 [Last Taken Unknown] Bisacodyl [Magic Bullet 10 mg] 10 mg CA DAILY PRN #30 supp 04/29/18 [Last Taken Unknown] Pantoprazole Sodium [Protonix 40mg (*)] 40 mg PO DAILY tab 04/29/18 [Last Taken Unknown] Polyethylene Glycol 3350 [Miralax 17 gm (*)] 17 gm PO DAILY PRN pkt 04/29/18 [ Last Taken Unknown] Sennosides/Docusate Sodium [Senokot-S] 1 - 2 tab PO BID tab 04/29/18 [Last Taken Unknown] traMADol [Ultram 50 mg (*)] 50 mg PO Q6HRS PRN tab 04/29/18 [Last Taken Unknown ] Metal Work Duct Installer Antibiotics: NA Discharge Medications: Refer to the Discharge Home Medication list for PRN reason. PICC Care - Routine: N/A - Orders Services needed: Registered Nurse, Certified Cook Mayonnaise, Physical Therapy, Occupational Therapy Isolation Type: None Oxygen: NA Diet Recommendation: no restrictions on diet Weigh Patient: weekly Short: Yes (remove 7 days after discharge for trial void) Activity/Weight Bearing Restrictions: as tolerated w/ walker - Labs/Radiology BMP Date: 05/04/18 CBC w/diff Date: 05/04/18 Call or Fax Lab and Imaging Results to: Dr. Keon Gill - Follow Up Care Current Providers and Referrals: Manuel Jesus MD [Medical Doctor] - follow up in 2 weeks Jacques Zarco MD [Medical Doctor] - follow up in 2 weeks Lakeisha Mart MD [Primary Care Provider] - As per Instructions
--- NOTE | 2018-04-29 15:46 | ASMTDCNOTE ---
Case Management Discharge Discharge Order Complete? Answers: Yes Patient to Obtain Answers: Other Notes: [facility] Medications Transportation Arranged Answers: Other Notes: [facility] w/c transportation Transport will Pick (Date 04/29/2018 03:30 PM & Time) EMTALA Complete Answers: No Case Management Transport Answers: Yes Form Complete Faxed Final Orders Answers: Yes Agency/Facility Transfer Answers: Yes Report Printed & Faxed to Receiving Agency Family Notified Answers: No Discharge Comments Notes: Pts case discussed in tx rounds. Pt is being discharged today to [facility]. DC orders sent. CM provided LIA Conley w/ phone number to give report. CM available for changes. Plan: [facility] Date Signed: 04/29/2018 03:39 PM Electronically Signed By:SHAWN Bernardo
--- NOTE | 2018-04-29 15:46 | ASDISCHSUM ---
Discharge Information Plan Status:SNF Medically Cleared to Leave:04/29/2018 Discharge Date:04/29/2018 03:30 PM CM D/C Disposition:Residential Facility ADT D/C Disposition:Residential Facility Projected Discharge Date:04/29/2018 11:00 AM Transportation at D/C: Discharge Delay Reason: Follow-Up Date:04/29/2018 11:00 AM Discharge Slot: Final Diagnosis: Placement Information Referral Type:*Fdc/SNF Referral ID:[id number] Provider Name:[facility] Address 1:[address] Address 2: City:[place] Selection Factors: State:[place] Patient Contact Information Contact Name:MERCEDES Relationship: Address:[address] City:[place] Alternate Phone: State/Zip Code:[place] [address] Email: Financial Information Financial Class:Medicare Primary Plan Desc:MEDICARE INPATIENT Primary Plan Number:[id number] Secondary Plan Desc:[employer] [facility] Secondary Plan Number:[id number] Assessment Information [facility] Progress Note CM Note CM Note Notes: Pt presented to the ED through triage for ongoing hip pain and inability to ambulate related to a fall she had yesterday. Pt was seen in the ED yesterday; xrays showed a minimally displaced pubic ramus fracture on the right. Pt was discharged home w/ a walker provided by . Pt lives with her , Leonel, who is at bedside. Pt is also reporting syncopal episodes and vomiting today. Pt admtd for recurrent syncope, inability to ambulate and care for herself due to intractable hip and pelvic pain related to pubic ramus fracture, and possible left-sided pneumothorax. Pt has a history of multiple myeloma and is followed by Dr Gill at [facility]. Pt is scheduled to have shoulder surgery with Dr Zarco on 05/18/18. Exact DC needs TBD; PT/OT evals ordered. Anticipate pt to DC home w/HC vs. SNF. CM to follow. Date Signed: 04/24/2018 05:10 PM Electronically Signed By:Jess Nina RN LACE LACE Length of stay for Answers: 4-6 days current admission Acuity / Level of Answers: Yes Care: Did the patient have an inpatient admission? Comorbidities - select Answers: History of falls all that apply Other Notes: HTN, hx of breast cancer, multiple myeloma, ascending aort ic aneurysm, heart valve regurgitation # of Emergency department Answers: 1-2 visits in the last 6 months Score: 12 Date Signed: 04/29/2018 03:36 PM Electronically Signed By:SHAWN Bernardo [facility] JERAMY Progress Note CM Note CM Note Notes: 04/25/2018 Case Management Note Discussed pt during rounds this morning. Daughter Marcelina [phone] and son in law Víctor were present. Pt admitted after episode of syncope s/p displaced pubic ramus fracture. Pt lives independently with Scott [phone]. Daughter Bobbi can be reached at [phone]. Discussed d/c needs. PT recommending SNF rehab. Faxed referrals to [facility] (first choice), [facility] (2nd choice) and [facility] (last choice). Waiting to hear on auth. [facility] is closed until Friday. Earliest d/c will be Friday. Case Management d/c poc: to SNF rehab pending acceptance and authorization. Case Management to follow. Date Signed: 04/25/2018 01:15 PM Electronically Signed By:Edwige Waller RN [facility] CM Progress Note CM Note CM Note Notes: 04/28/2018 Case Management Note Discussed pt during rounds this morning. Faxed updates to [facility]. Anticipating d/c tomorrow. Case Management d/c poc: [facility]. Case Management to follow. Date Signed: 04/28/2018 03:31 PM Electronically Signed By:Edwige Waller RN Case Management Discharge Plan Note Case Management Discharge Discharge Order Complete? Answers: Yes Patient to Obtain Answers: Other Notes: [facility] Medications Transportation Arranged Answers: Other Notes: [facility] w/c transportation Transport will Pick (Date 04/29/2018 03:30 PM & Time) DHRUV Complete Answers: No Case Management Transport Answers: Yes Form Complete Faxed Final Orders Answers: Yes Agency/Facility Transfer Answers: Yes Report Printed & Faxed to Receiving Agency Family Notified Answers: No Discharge Comments Notes: Pts case discussed in tx rounds. Pt is being discharged today to [facility]. DC orders sent. JERAMY provided LIA Conley w/ phone number to give report. CM available for changes. Plan: [facility] Date Signed: 04/29/2018 03:39 PM Electronically Signed By:SHAWN Bernardo Intervention Information Intervention Type:*Incorrect Registration Date of Service:04/25/2018 06:50 AM Patient Type:Inpatient Staff Member:LIA Phipps, [facility] Hours: Discipline: Severity: Comment: Intervention Type:*IM-Signed Date of Service:04/29/2018 03:11 PM Patient Type:Inpatient Staff Member:Julia Tang Hours: Discipline: Severity: Comment:
--- NOTE | 2018-04-29 16:45 | PDDCSUM ---
Discharge Summary Discharge Summary: DISCHARGE SUMMARY FOLLOW-UP ITEMS: Repeat creatinine BUN lytes hemoglobin and hematocrit next Friday to be followed up by Dr. Keon Gill DATE OF ADMISSION: 04/24/2018 DATE OF DISCHARGE: 04/29/2018 DISCHARGE DIAGNOSES: 1. Nondisplaced pubic rami fracture 2. Acute syncope secondary to vasovagal episode from pain 3. Suspected Zahida-Ray tear 4. Acute blood loss anemia 5. Acute urinary retention 6. Acute constipation 7. Large rectocele 8. Chronic hypertension 9. Chronic multiple myeloma 10. 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 CONSULTATIONS: Gastroenterology PROCEDURES / IMAGING: Upper endoscopy demonstrating no ongoing source of bleeding CHIEF COMPLAINT: Severe pain and syncope SUBJECTIVE: Patient is feeling well at time discharge, she reports that her pain is well controlled PHYSICAL EXAM ON DISCHARGE: Systolic blood pressure is 110-130, heart rate 70-80, afebrile overnight, satting on room air, alert awake oriented x3, lungs are clear to auscultation bilaterally, heart rhythm is regular, motor strength in the bilateral lower extremities is 5/5, sensation intact bilaterally LABS ON DISCHARGE: Hemoglobin 9.6, creatinine 0.7, serum sodium level 131, iron level 25, TIBC 260 , iron sat 10%, TSH 4.3 HOSPITAL COURSE BY PROBLEM: The patient presented with severe pain and subsequent syncope most likely secondary to a vasovagal episode. She subsequently developed nausea and had severe vomiting, followed by hematemesis. Her hemoglobin was notably decline from her baseline, and she received 1 unit of packed red blood cells for acute blood loss anemia most likely secondary to a Zahida-Ray tear from ongoing nausea and vomiting. She underwent upper endoscopy which did not demonstrate any source of ongoing bleeding. After her transfusion and pain management, she was symptomatically better and did not have any subsequent syncope. Her hospitalization was extended secondary to severe constipation which required aggressive laxatives, stool softeners, enemas, and the patient has a notable large rectocele. She will be continued on scheduled stool softeners, as needed laxatives, suppository. During her hospitalization she also experienced acute urinary retention and a Short catheter was placed. After approximately a week of rehab and increased ambulation, Short catheter should be removed with subsequent voiding trials. The patient can be weight-bearing as tolerated. She will follow up with Dr. Boris Zarco for her pelvic fracture which has significantly limited her mobility but is not a surgical fracture. DISCHARGE MEDICATIONS: Please see official discharge medication reconciliation sheet in chart , continue all home medications with the initiation of Tylenol 3 as needed, tramadol as needed, scheduled Senokot, as needed MiraLax, as needed bisacodyl both orally and a suppository. DISCHARGE INSTRUCTIONS: Please follow up with Dr. Zarco in 2 weeks, please follow up with Gastroenterology in 2 weeks, please have labs drawn in 1 week to be followed up by her primary construction producer. TIME SPENT: Greater than 30 minutes were spent on direct patient care, as well as discharge planning and preparation.
== END 2018-04-29 15:30 | DRG 535 ==
LOC: OBSVTOIN 14:58 → F2W 15:52
PROVIDERS: ADMIT Internal Medicine; ATTEND Internal Medicine
DX: S32.501A Unspecified fracture of right pubis, initial encounter for closed fracture (principal); K22.6 Gastro-esophageal laceration-hemorrhage syndrome; R55 Syncope and collapse; D62 Acute posthemorrhagic anemia; C90.01 Multiple myeloma in remission; E22.2 Syndrome of inappropriate secretion of antidiuretic hormone; I10 Essential (primary) hypertension; I71.2 Thoracic aortic aneurysm, without rupture; D50.9 Iron deficiency anemia, unspecified; R33.9 Retention of urine, unspecified; K59.00 Constipation, unspecified; N81.6 Rectocele; Z85.3 Personal history of malignant neoplasm of breast; Z96.641 Presence of right artificial hip joint; W01.0XXA Fall on same level from slipping, tripping and stumbling without subsequent striking against object, initial encounter; Y92.013 Bedroom of single-family (private) house as the place of occurrence of the external cause
CPT/HCPCS: 82607-90; 84484-PO; 96374; 97116-GP; 97161-GP; 97165-GO; 97530-GO; 97530-GP; 97535-GO; G8978-GP-CK; G8979-GP-CI; G8987-GO-CJ; G8987-GO-CL; G8988-GO-CJ; G8989-GO-CJ; J0885; J1650; J2270; J2405; J2704; P9016; Q9967

== ENCOUNTER → 2018-08-10 | Outpatient (CLI) | payer BC | LOC: FIMAGING 18:15 | PROVIDERS: ATTEND Orthopaedic Surgery | DX: S32.591D Other specified fracture of right pubis, subsequent encounter for fracture with routine healing (principal); S32.511D Fracture of superior rim of right pubis, subsequent encounter for fracture with routine healing ==

== ENCOUNTER 2018-09-07 05:53 | Inpatient (IN) | payer OTHER, BC ==
[2018-09-07] MEDS ORDERED: ACETAMINOPHEN 500 MG TAB PO ONE (06:04)
[2018-09-07] MEDS ORDERED: ceFAZolin 2 GM/DEXTROSE 100 ML IV ONE (06:04)
[2018-09-07] MEDS ORDERED: LR 1,000 ML IV SCH ×2 (06:04→08:30)
--- NOTE | 2018-09-07 06:42 | PDHPUP ---
History & Physical Update H&P update statement: This history and physical update is based on an assessment of the patient which was completed after admission or registration (within 24 hours), but prior to the surgery/procedure. H&P update: no change in patient's condition since H&P completed
--- NOTE | 2018-09-07 06:43 | PDIAF ---
- Diagnosis Diagnosis: right shoulder djd Code Status: Full Code - Medication Management Discharge Medications: electronically signed and located in the Home Medication List. - Orders Services needed: Physical Therapy Isolation Type: None Diet Recommendation: no restrictions on diet Diet Texture: Regular Texture Diet Additional Instructions: TOTAL JOINT ARTHROPLASTY DISCHARGE INSTRUCTIONS 1. Your surgeon follows the [facility] protocol for reducing your risk of DVT (blood clots) following surgery. Medication will be ordered to prevent blood clots. A sudden increase in calf pain and/or swelling could indicate a blood clot in your leg. If this occurs, please call your surgeon or his/her compounding assistant. An ultrasound of the leg may be necessary to diagnose a blood clot. If you have conditions that make you a higher risk for blood clots, your surgeon may use more aggressive ways to prevent them. Notify your surgeon if you think you are a high risk for blood clots. 2. Wear your white surgical stockings (SADA hose) for 2 weeks. This decreases your swelling and may help prevent blood clots. It is ok to remove SADA hose at night time to give your legs a break. 3. Swelling and bruising in the surgical leg is common. If you feel that it is excessive, please notify your surgeon. 4. Elevate your surgical leg with the ankle above the hip several times every day. Please keep the leg straight when you elevate by putting pillows under your foot. Do not put pillows under your knee. This will make being able to fully straighten more difficult. This is uncomfortable, but try to do it as much as possible. 5. For total knee replacements use compressive wrap on your knee for 3-5 days after surgery, then you can discontinue it. 6. Use a walker or crutches for 1-2 weeks. Progress your weight-bearing as tolerated. You may start to use a cane when you feel stable and safe. 7. You will receive physical therapy instructions in the hospital. Continue those exercises at home. There are additional exercises in the total joint booklet you were given before surgery. Outpatient physical therapy will begin 7- 10 days after surgery. Please schedule this in advance. 8. Use ice on your knee at least 3-5 times every day for 30 minutes. This helps reduce pain and swelling. Also use it at night before falling asleep. 9. Leave your surgical dressing in place for 2 weeks. Your dressing is water resistant, but not waterproof. Cover it with Saran Wrap or Larvx-h-Lxpa before showering. You may shower as soon as you feel safe entering a shower. If you notice bleeding from your incision 2 or 3 days after surgery, please notify your surgeon. 10. Due to narcotics, decreased activity and altered diet, most patients experience constipation after surgery. Use oraf-iop-olssnic stool softeners while you are on narcotics. 11. You may drive a car when you are comfortable bearing weight, have good muscular control of your leg and are off narcotics. This usually occurs 2-4 weeks after surgery, depending on which leg was operated on. 12. If there are questions not addressed here, please refer the [facility] book given for more information. If you still have questions, please contact your surgeon s office. 13. If you have a life-threatening emergency, please call 911 and go to the emergency room immediately. For non-life threatening emergencies, please call your physicians office for advice before going to the emergency room. - Follow Up Care Current Providers and Referrals: Jacques Zarco MD [Medical Doctor] - Lakeisha Mart MD [Primary Care Provider] -
--- NOTE | 2018-09-07 06:47 | PDANEPAE ---
ANE History of Present Illness shoulder OA ANE Past Medical History - Cardiovascular History Hx Hypertension: Yes Hx Arrhythmias: No Hx Chest Pain: No Hx Coronary Artery / Peripheral Vascular Disease: No Hx CHF / Valvular Disease: No Hx Palpitations: No Cardiovascular History Comment: asc aortic aneurysm 4 cm and stable - Pulmonary History Hx COPD: No Hx Asthma/Reactive Airway Disease: No Hx Recent Upper Respiratory Infection: No Hx Oxygen in Use at Home: No Hx Sleep Apnea: No Sleep Apnea Screening Result - Last Documented: Negative - Neurologic History Hx Cerebrovascular Accident: No Hx Seizures: No Hx Dementia: No - Endocrine History Hx Diabetes: No Hypothyroid: No Hyperthyroid: No Obesity: no Endocrine History Comment: siadh-no issues currently - Renal History Hx Renal Disorders: No - Liver History Hx Hepatic Disorders: No - Neurological & Psychiatric Hx Hx Neurological and Psychiatric Disorders: No - Cancer History Hx Cancer: Yes Cancer History Comment: breast [id number] lumpectomy. multiple myoloma - Congenital Disorder History Hx Congenital Disorders: No - GI History GERD: mild Hx Gastrointestinal Disorders: Yes Gastrointestinal History Comment: acid reflux - Other Health History Other Health History: chronic anemia. bruises easily - Chronic Pain History Chronic Pain: No - Surgical History Prior Surgeries: 2010 wrist repair. none since ANE Review of Systems Review of systems is: negative Review of Systems: - Exercise capacity METS (RN): 4 METS ANE Patient History - Allergies Allergies/Adverse Reactions: midazolam [From Versed] Allergy (Severe, Verified 08/28/18 11:38) Vomiting PAIN MEDS Allergy (Severe, Uncoded 04/24/18 12:49) Vomiting - Home Medications Home medications: home medication list seen and reviewed Home Medications: Atorvastatin Calcium [Lipitor 10 mg (*)] 10 mg PO DAILY 11/27/14 [Last Taken ] Losartan Potassium [Cozaar 50 mg (*)] 50 mg PO DAILY 11/27/14 [Last Taken ] C/E/Zn/Cu/OM3/DHA/EPA/LUT/ZEAX [Preservision Areds 2 Softgel] 1 each PO BIDMEAL 04/24/18 [Last Taken Unknown] Carboxymethyl/Glycerin/Poly80 [Refresh Optive Advanced Drops] 1 drop OP BID [Last Taken Unknown] Cholecalciferol Vit D3 [Vitamin D3 (*)] 1,000 units PO DAILY 04/24/18 [Last Taken Unknown] Diclofenac Sodium 1% [Voltaren Gel (*)] 1 rosales TP DAILY 04/24/18 [Last Taken ] Metoprolol Tartrate [Lopressor 25 mg (*)] 25 mg PO BID 04/24/18 [Last Taken ] Aspirin EC [Aspirin EC 81 mg (*)] 81 mg PO DAILY 08/24/18 [Last Taken Unknown] Cyanocobalamin [Vitamin B12 (*)] 500 mcg PO DAILY 08/24/18 [Last Taken Unknown] Xgeva 130 mg SC Q28D 08/24/18 [Last Taken 08/13/18] - NPO status NPO Status: no food or drink >8 hours - Anes Hx Anes Hx: post operative nausea and vomiting, slow to awaken from anesthesia - Smoking Hx Smoking Status: Never smoked - Alcohol Use Alcohol Use: None - Family Anes Hx Family Anes Hx: none Family Hx Anesthesia Complications: none ANE Labs/Vital Signs - Vital Signs Height: 165.1 cm Weight: 54.431 kg ANE Physical Exam - Airway Neck exam: FROM Mallampati Score: Class 2 Mouth exam: normal dental/mouth exam - Pulmonary Pulmonary: no respiratory distress, clear to auscultation - Cardiovascular Cardiovascular: regular rate and rhythym, no murmur, rub, or gallop - ASA Status ASA Status: III ANE Anesthesia Plan Anesthesia Plan: general endotracheal anesthesia, GA w [facility] Anesthesia: interscalene BP NB
[2018-09-07] MEDS ORDERED: PROPOFOL/EMULSION 500 MG/50 ML BOTTLE IV ONE (06:58)
[2018-09-07] MEDS ORDERED: BUPIVACAINE/EPI 0.5% 30 ML SDV ONE ×2 (06:59→07:05)
[2018-09-07] MEDS ORDERED: BACITRACIN 50,000 UNITS/10 ML SYR IRR ONE (07:00)
[2018-09-07] MEDS ORDERED: POLYMYXIN B SULFATE 500,000 UNIT/10 ML SYR IRR ONE (07:00)
[2018-09-07] MEDS ORDERED: ePHEDrine SULFATE 25 MG/5 ML SYR ONE (07:32)
[2018-09-07] MEDS ORDERED: LIDOCAINE 2% 5 ML SDV ONE (08:00)
[2018-09-07] MEDS ORDERED: ONDANSETRON 4 MG/2 ML VIAL ONE (08:00)
[2018-09-07] MEDS ORDERED: DEXAMETHASONE 4 MG/ML VIAL ONE (08:00)
[2018-09-07] MEDS ORDERED: TEMAZEPAM 15 MG CAP PO PRN (08:24)
[2018-09-07] MEDS ORDERED: PROMETHAZINE HCL 25 MG SUPPR PR PRN (08:24)
[2018-09-07] MEDS ORDERED: CYCLOBENZAPRINE 10 MG TAB PO PRN (08:24)
[2018-09-07] MEDS ORDERED: METOCLOPRAMIDE 10 MG/2 ML VIAL IVP PRN (08:24)
[2018-09-07] MEDS ORDERED: diphenhydrAMINE 25 MG CAP PO PRN (08:24)
[2018-09-07] MEDS ORDERED: DIPHENOXYLATE/ATROPINE LOMOTIL 1 TAB PO PRN (08:24)
[2018-09-07] MEDS ORDERED: traMADol 50 MG TAB PO PRN (08:24)
[2018-09-07] MEDS ORDERED: ONDANSETRON DISINTEGRATING 4 MG TAB PO PRN (08:24)
[2018-09-07] MEDS ORDERED: ONDANSETRON 4 MG/2 ML VIAL IVP PRN (08:24)
[2018-09-07] MEDS ORDERED: LACTULOSE 20 GM/30 ML UDCUP PO PRN (08:24)
[2018-09-07] MEDS ORDERED: TAPENTADOL HCL 50 MG TAB PO PRN (08:24)
[2018-09-07] MEDS ORDERED: POLYETHYLENE GLYCOL 3350 17 GM PKT PO PRN (08:24)
[2018-09-07] MEDS ORDERED: PROMETHAZINE HCL 25 MG/ML INJ IVP PRN (08:24)
[2018-09-07] MEDS ORDERED: MAGNESIUM HYDROXIDE 30 ML UDCUP PO PRN (08:24)
[2018-09-07] MEDS ORDERED: BISACODYL 10 MG SUPP PR PRN (08:24)
--- NOTE | 2018-09-07 08:29 | POSTOPPROG ---
Post Op Note Date of Operation: 09/07/18 Surgeon: Jacques Zarco Manufacturing Recruiter: zenobia Anesthesiologist: flex Anesthesia: GET(General Endotracheal) Pre-op Diagnosis: right shoulder djd Post-op Diagnosis: same Indication: same Procedure: right tsa Inf/Abcess present in the surg proc area at time of surgery?: No Depth: Deep Incisional (Fascial) EBL: 50-100
[2018-09-07] MEDS ORDERED: NALOXONE HCL 0.4 MG/ML INJ IVP PRN (08:40)
--- NOTE | 2018-09-07 09:44 | PDMN ---
Medical Necessity Medical necessity: [facility] S634 Shoulder Arthroplasty, 1 day: 78 yo s/p R shoulder total arthroplasty, [facility] IP only
[2018-09-07] MEDS: ATORVASTATIN CALCIUM 10 MG TAB PO SCH (11:24)
[2018-09-07] MEDS: METOPROLOL TARTRATE 25 MG TAB PO SCH ×2 (11:24→20:24)
[2018-09-07] MEDS: SENNOSIDES/DOCUSATE SODIUM TAB PO SCH ×2 (11:24→20:24)
[2018-09-07] MEDS: ACETAMINOPHEN 325 MG TAB PO SCH ×2 (12:01→18:04)
[2018-09-07] MEDS: ceFAZolin 2 GM/DEXTROSE 100 ML IV SCH ×2 (14:42→20:24)
[2018-09-07] MEDS: LOSARTAN POTASSIUM 50 MG TAB PO SCH (15:44)
[2018-09-07] MEDS: FAMOTIDINE 20 MG TAB PO SCH (20:24)
[2018-09-07] MEDS: ASPIRIN 81 MG CHEWABLE TAB PO SCH (20:24)
[2018-09-08] MEDS: ACETAMINOPHEN 325 MG TAB PO SCH ×2 (00:44→06:47)
--- NOTE | 2018-09-08 07:27 | PDIAF ---
- Diagnosis Diagnosis: right shoulder djd Code Status: Full Code - Medication Management Discharge Medications: electronically signed and located in the Home Medication List. - Orders Services needed: Physical Therapy Isolation Type: None Diet Recommendation: no restrictions on diet Diet Texture: Regular Texture Diet Additional Instructions: TOTAL JOINT ARTHROPLASTY DISCHARGE INSTRUCTIONS 1. Your surgeon follows the [facility] protocol for reducing your risk of DVT (blood clots) following surgery. Medication will be ordered to prevent blood clots. A sudden increase in calf pain and/or swelling could indicate a blood clot in your leg. If this occurs, please call your surgeon or his/her real estate administrative assistant. An ultrasound of the leg may be necessary to diagnose a blood clot. If you have conditions that make you a higher risk for blood clots, your surgeon may use more aggressive ways to prevent them. Notify your surgeon if you think you are a high risk for blood clots. 2. Wear your white surgical stockings (SADA hose) for 2 weeks. This decreases your swelling and may help prevent blood clots. It is ok to remove SADA hose at night time to give your legs a break. 3. Swelling and bruising in the surgical leg is common. If you feel that it is excessive, please notify your surgeon. 4. Elevate your surgical leg with the ankle above the hip several times every day. Please keep the leg straight when you elevate by putting pillows under your foot. Do not put pillows under your knee. This will make being able to fully straighten more difficult. This is uncomfortable, but try to do it as much as possible. 5. For total knee replacements use compressive wrap on your knee for 3-5 days after surgery, then you can discontinue it. 6. Use a walker or crutches for 1-2 weeks. Progress your weight-bearing as tolerated. You may start to use a cane when you feel stable and safe. 7. You will receive physical therapy instructions in the hospital. Continue those exercises at home. There are additional exercises in the total joint booklet you were given before surgery. Outpatient physical therapy will begin 7- 10 days after surgery. Please schedule this in advance. 8. Use ice on your knee at least 3-5 times every day for 30 minutes. This helps reduce pain and swelling. Also use it at night before falling asleep. 9. Leave your surgical dressing in place for 2 weeks. Your dressing is water resistant, but not waterproof. Cover it with Saran Wrap or Kflgj-h-Njsk before showering. You may shower as soon as you feel safe entering a shower. If you notice bleeding from your incision 2 or 3 days after surgery, please notify your surgeon. 10. Due to narcotics, decreased activity and altered diet, most patients experience constipation after surgery. Use wmtx-svt-vkhncey stool softeners while you are on narcotics. 11. You may drive a car when you are comfortable bearing weight, have good muscular control of your leg and are off narcotics. This usually occurs 2-4 weeks after surgery, depending on which leg was operated on. 12. If there are questions not addressed here, please refer the [facility] book given for more information. If you still have questions, please contact your surgeon s office. 13. If you have a life-threatening emergency, please call 911 and go to the emergency room immediately. For non-life threatening emergencies, please call your physicians office for advice before going to the emergency room. - Follow Up Care Current Providers and Referrals: Jacques Zarco MD [Medical Doctor] - Lakeisha Mart MD [Primary Care Provider] -
--- NOTE | 2018-09-08 07:30 | SOAPPROG ---
SOAP Progress Note Assessment/Plan: Assessment: s/p tsa Plan: d/c home pendulum rom f/u at two weeks 09/08/18 07:27 Subjective: min complaints no cp or sob Objective: Vital Signs Temp Pulse Resp BP Pulse Ox 36.5 C 67 16 157/74 H 95 09/08/18 04:00 09/08/18 04:00 09/08/18 04:00 09/08/18 04:00 09/08/18 04:00 Laboratory Results 09/08/18 05:27 09/07/18 09/08/18 09/09/18 05:59 05:59 05:59 Intake Total 1810 600 Output Total 800 300 Balance 1010 300 dressing intact intact pf,df,ehl toes warm and pink neg homans elina xrays stable alignment, no fx ICD10 Worksheet Patient Problems: Problems Problem Status Onset Inferior pubic ramus fracture Acute Intractable pain Acute Syncope Acute
[2018-09-08] MEDS: ATORVASTATIN CALCIUM 10 MG TAB PO SCH (08:40)
[2018-09-08] MEDS: LOSARTAN POTASSIUM 50 MG TAB PO SCH (08:40)
[2018-09-08] MEDS: FAMOTIDINE 20 MG TAB PO SCH (08:41)
[2018-09-08] MEDS: METOPROLOL TARTRATE 25 MG TAB PO SCH (08:41)
[2018-09-08] MEDS: SENNOSIDES/DOCUSATE SODIUM TAB PO SCH (08:41)
[2018-09-08] MEDS: ASPIRIN 81 MG CHEWABLE TAB PO SCH (08:41)
[2018-09-08 11:20] VITALS: BP 122/59
--- NOTE | 2018-09-08 11:42 | ASMTLACE ---
LACE Length of stay for Answers: 2 days current admission Acuity / Level of Answers: Yes Care: Did the patient have an inpatient admission? Comorbidities - select Answers: Other Notes: HTN all that apply # of Emergency department Answers: 1-2 visits in the last 6 months Score: 7 Date Signed: 09/08/2018 11:42 AM Electronically Signed By:ELEN Burgos
--- NOTE | 2018-09-08 11:44 | ASMTCMCOM ---
CM Note CM Note Notes: Pt had planned OA of shoulder, resides with spouse. PT rec home/outpatient. Pt declines HHC. No CM d/c needs identified. Date Signed: 09/08/2018 11:43 AM Electronically Signed By:ELEN Burgos
[2018-09-10] MEDS ORDERED: DENOSUMAB SC SCH (08:30)
--- NOTE | 2018-09-10 18:43 | GOP ---
[f rep st] OPERATIVE REPORT DATE OF OPERATION: SURGEON: Jacques Zarco MD BUILDING ECONOMIST: Gavin Camilo, LOG CARRIER OPERATOR, [facility]. assistant professor surgical technology was a medical necessity for the entirety o f the case. PREOPERATIVE DIAGNOSIS: Right shoulder degenerative joint disease. POSTOPERATIVE DIAGNOSIS: Right shoulder degenerative joint disease. PROCEDURE PERFORMED: Right total shoulder arthroplasty. FINDINGS: SPECIMENS: To Pathology, the humeral head. 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 She has failed all attempts at conservative management. I have, therefore, recommended operative interv ention. I have outlined the surgical procedure, risks, benefits, alternatives, and she wished to pro ceed. Written consent was signed and placed in the patient's chart. DESCRIPTION OF PROCEDURE: The patient was identified in the preanesthesia area. The right shoulder clearly demarcated as the operative site with double marker. She was given 1 g of vancomycin IV en r oute to the operative suite. In the OR, an interscalene block was placed followed by general endotra cheal anesthesia. She was positioned in the beach chair position. All bony prominences were well pa dded including use of a neurological head loft worker. Appropriate time-out procedure was carried out. T he limb was then sterilely prepped and draped in usual fashion. An anterior deltopectoral incision w as made. Thick subcutaneous flaps were elevated. Several fibers of the deltoid were retracted media lly to protect the cephalic vein, and a self-retaining retractor was placed across the conjoined tend on and deltoid. The arm was externally rotated. The subscapularis elevated in a peel fashion off th e lesser tuberosity and exploited through the rotator cuff interval. This allowed excellent visualiz ation of the underlying glenohumeral joint. There was gross bony change. The inferior capsule was t hen freed. Retractors were placed across the inferior and superior aspect of the humeral head and th e proximal cut made. The bony fragment was withdrawn. Inferior marginal osteophyte was cleared off the head and neck junction. Retractors were placed. Attention was first turned to the glenoid. A c entral pin was then placed and a size 44 mm glenoid trial was selected. The glenoid was reamed with the 44 mm reamer. The central peg was drilled and 3 peripheral drill holes for an anchor peg glenoid was then placed. The anchor peg glenoid final implant was then press fit into position and secured. Excellent stability was achieved. Attention was turned to the proximal humerus. The proximal dante l was serial reaming to a size 12. A trial reduction with a 12 mm stem, a 48 mm x 18 mm head was the n placed. This allowed full range of motion to the shoulder with 50% subluxation with direct manual pressure. The final implants were impacted and connected together on the back table, and this was pl aced into the proximal humerus under direct visualization. The shoulder was irrigated and reduced. All loose debris was evacuated free. The stability and movement profile were as above. The subscapu darinel was repaired using #1 Ethibond incorporating the biceps tendon in a tenodesis fashion, and this was closed to the rotator cuff interval as well. The subcutaneous tissue was injected with a joint cocktail of ropivacaine, Toradol and epinephrine. The deltoid closed using 0 Vicryl, subcutaneous ti ssue using 2-0 Monocryl and skin dandre. A sterile dressing was placed. The patient was awakened a nd taken to the recovery room in good, stable condition. TOTAL TOURNIQUET TIME: None. COMPLICATIONS: None. IMPLANTS: The [employer] anchor peg glenoid, size 44, eccentric humeral head 48 mm x 18 mm, size 1 2 stem. DISPOSITION: To the recovery room and then the floor. She will follow standard total shoulder recov perfecto. /[id number]/MODL
--- NOTE | 2018-09-11 03:40 | GDS ---
[f rep st] DISCHARGE SUMMARY ADMIT DIAGNOSIS: Right shoulder degenerative joint disease. DISCHARGE DIAGNOSIS: Right shoulder degenerative joint disease. PROCEDURE: Right total shoulder arthroplasty. HISTORY OF PRESENT ILLNESS: The patient is a 78-year-old woman with end-stage arthritis to the right shoulder. She presented for elective right total shoulder arthroplasty. HOSPITAL COURSE: The patient was admitted after uncomplicated total shoulder arthroplasty. She had an interscalene block. At the time of discharge, she was tolerating an oral diet. Pain was well con trolled on oral medicines. She is voiding without difficulty. Intact radial, ulnar, median nerve mo tor and sensory function. FOLLOWUP: In 2 weeks. Seek attention for increasing redness, swelling, drainage, discharge, or othe r focal complaints. DISCHARGE MEDICATIONS: Tramadol 50 mg 1-2 every 6 hours p.r.n. pain. /[id number]/MODL
== END 2018-09-08 12:41 | disposition home or self-care (01) | DRG 483 ==
LOC: F3N 05:53
PROVIDERS: ADMIT Orthopaedic Surgery; ATTEND Orthopaedic Surgery
PROC: 0RRJ0JZ Replacement of Right Shoulder Joint with Synthetic Substitute, Open Approach (ICD-10-PCS; principal; 2018-09-07 07:15)
DX: M19.011 Primary osteoarthritis, right shoulder (principal); I10 Essential (primary) hypertension; I71.4 Abdominal aortic aneurysm, without rupture; K21.9 Gastro-esophageal reflux disease without esophagitis; D53.9 Nutritional anemia, unspecified; Z85.3 Personal history of malignant neoplasm of breast
CPT/HCPCS: 97116-GP; 97161-GP; 97165-GO; 97535-GO; J0690; J1100; J2405; J2704

== ENCOUNTER → 2018-10-19 | Outpatient (CLI) | payer BC | LOC: BMCIMAGING 08:04 | PROVIDERS: ATTEND Physician Assistant | DX: Z47.1 Aftercare following joint replacement surgery (principal); Z96.611 Presence of right artificial shoulder joint ==

== ENCOUNTER → 2018-11-25 | Outpatient (CLI) | payer OTHER, BC | LOC: FIMAGING 09:08 | PROVIDERS: ATTEND Internal Medicine | DX: Z12.31 Encounter for screening mammogram for malignant neoplasm of breast (principal); Z86.000 Personal history of in-situ neoplasm of breast; Z80.3 Family history of malignant neoplasm of breast ==

== ENCOUNTER → 2018-11-25 | Outpatient (CLI) | payer OTHER, BC | LOC: FIMAGING 09:41 | PROVIDERS: ATTEND Internal Medicine Hematology & Oncology | DX: M50.31 Other cervical disc degeneration, high cervical region (principal); I65.23 Occlusion and stenosis of bilateral carotid arteries; C90.01 Multiple myeloma in remission ==

== ENCOUNTER → 2018-12-02 | Outpatient (CLI) | payer BC | LOC: BMCIMAGING 08:18 | PROVIDERS: ATTEND Orthopaedic Surgery | DX: Z47.1 Aftercare following joint replacement surgery (principal); Z96.611 Presence of right artificial shoulder joint ==